=== PATIENT | male | born 1955 | race Caucasian/White ===

== ENCOUNTER 2016-08-18 14:45 | Inpatient (IN) ==
[2016-08-18] MEDS ORDERED: VANCOMYCIN 1,000 MG in 0.9 % SODIUM CHLORIDE 250 ML IV ONE (15:09)
[2016-08-18] MEDS ORDERED: HYDROmorphone 2 MG/ML SYRINGE IV PRN ×2 (15:15→18:39)
[2016-08-18] MEDS ORDERED: PIPERACILLIN SODIUM/TAZOBACTAM 3.375 GM in DEXTROSE 5% IN WATER 50 ML IV SCH ×2 (15:15→21:00)
[2016-08-18] MEDS ORDERED: 0.9 % SODIUM CHLORIDE 1,000 ML IV SCH (15:15)
--- NOTE | 2016-08-18 15:15 | Emergency Department Note ---
Wound/Laceration HPI - General Chief Complaint: Wound/Laceration Stated Complaint: wound debreidment Time Seen by Provider: 08/18/16 15:09 Source: patient Mode of arrival: wheelchair Limitations: no limitations - History of Present Illness HPI Narrative: This patient has a very badly infected wound on his left foot that previously had a toe amputation. He was seen in wound care brought over from the clinic to be admitted on IV antibiotics. Patient otherwise feels pretty well. - Related Data Home Medications Medication Instructions Recorded Confirmed Acetaminophen [Acetaminophen Extra 500 mg PO Q6H PRN 07/20/16 08/18/16 Strength] Clopidogrel [Plavix] 75 mg PO QDAY 07/20/16 08/18/16 Lisinopril [Zestril] 10 mg PO QDAY 07/20/16 08/18/16 Naproxen (Pp) [Aleve (Pp)] 220 mg PO PRN PRN 07/20/16 08/18/16 Pravastatin [Pravachol] 20 mg PO HS 07/20/16 08/18/16 buPROPion [Wellbutrin Sr] 150 mg PO QDAY 07/20/16 08/18/16 glipiZIDE [Glucotrol] 5 mg PO QDAY 07/20/16 08/18/16 metFORMIN HCL [Fortamet] 1,000 mg PO BID 07/20/16 08/18/16 HYDROcodone/ACETAMINOPHEN 1 each PO TID PRN 08/18/16 08/18/16 [Hydrocodon-Acetaminophen 5-325] Allergies Allergy/AdvReac Type Severity Reaction Status Date / Time No Known Drug Allergies Allergy Verified 08/18/16 14:52 Review of Systems All systems ED: reviewed and negative except as stated. Past Medical History - Past Medical History Medical history: Reports: CVA, diabetes, hypertension, thyroid disease Surgical history ED: Reports: tonsillectomy, other (toe amputation) Physical Exam Pictures of the patient's wound is dressed now and will not be undressed - General Limitations: no limitations General appearance: alert - Head Head exam: atraumatic - Eye Eye exam: Present: normal appearance - ENT ENT exam: normal exam - Neck Neck exam: Present: normal inspection - Chest Chest inspection: Present: normal inspection - Respiratory Respiratory exam: Present: normal lung sounds bilaterally - Cardiovascular Cardiovascular exam: Present: regular rate, normal rhythm, normal heart sounds - Abdominal Exam Abdominal exam: Present: soft. Absent: distention, tenderness - Neurological Exam Neurological exam: Present: alert - Psychiatric Psychiatric exam: Present: normal affect - Skin Skin exam: Present: warm, dry Course Vital Signs Temperature 97.2 F L 08/18/16 14:48 Pulse Rate 72 08/18/16 14:48 Respiratory Rate 16 08/18/16 14:48 Blood Pressure 145/79 08/18/16 14:48 Pulse Oximetry (%) 100 08/18/16 14:48 Temperature 97.2 F L 08/18/16 14:48 Pulse Rate 74 08/18/16 17:30 Respiratory Rate 16 08/18/16 14:48 Blood Pressure 144/94 08/18/16 17:30 Pulse Oximetry (%) 100 08/18/16 17:30 Wound/Laceration - Lab Data Lab results reviewed: Yes I reviewed the patient's lab results. Result diagrams: 08/18/16 15:15 08/18/16 15:15 Lab Results 08/18/16 08/18/16 Range/Units 15:15 15:15 WBC 11.9 H (4.5-11.0) K/mcL RBC 3.03 L (4.50-5.90) M/mcL Hgb 9.3 L (13.5-16.5) g/dL Hct 28.4 L (41.0-55.0) % MCV 93.8 (80.0-100.0) fL MCH 30.7 (26.0-34.0) pg MCHC 32.7 (31.0-36.0) g/dL RDW 14.8 H (11.5-14.5) % Plt Count 647 H (140-440) K/mcL MPV 5.8 L (7.4-10.4) fL Gran % 74.0 (38.0-78.0) % Lymph % (Auto) 16.5 (15.5-49.0) % [place] % (Auto) 5.5 (1.0-9.0) % Eos % (Auto) 3.4 (0.0-7.0) % Baso % (Auto) 0.6 (0.0-2.0) % Gran # 8.8 H (1.8-8.0) K/mcL Lymph # 2.0 (1.5-4.8) K/mcL [place] # 0.7 (0.1-0.9) K/mcL Eos # 0.4 (0.0-0.7) K/mcL Baso # 0.1 (0.0-0.3) K/mcL Sodium 133 (133-145) mmol/L Potassium 5.4 H (3.3-5.1) mmol/L Chloride 96 (96-108) mmol/L Carbon Dioxide 23 (22-30) mmol/L Anion Gap 14.0 (8-16) BUN 16 (8-23) mg/dl Creatinine 0.9 (0.7-1.2) mg/dl GFR Calculation 91 Glucose 67 L (70-105) mg/dL Hemoglobin A1c 6.6 H (4.0-6.0) % HGB Estim Average Glucose 143 mg/dL Calcium 9.4 (8.6-10.4) mg/dl Total Bilirubin 0.4 (0.0-1.0) mg/dL AST 12 (0-37) U/l ALT 7 (0-40) U/l Alkaline Phosphatase 90 (39-117) U/L C-React Prot High Sens 94.4 H (1.0-3.0) mg/L Total Protein 8.0 (5.9-8.4) gm/dL Albumin 4.0 (3.2-5.2) gm/dL Globulin 4.0 H (2.2-3.7) gm/dL Albumin/Globulin Ratio 1.0 (1.0-2.3) TSH 12.85 H (0.27-5.01) uIU/ml Disposition Clinical Impression: Cellulitis and abscess of foot, Infected ulcer of skin Disposition: [facility]fer As Inpt ([facility]) Condition: Good Referrals: Julee Morocho DO [Primary Care Provider] - Time of Disposition: 18:01
[2016-08-18 16:26] LABS: Basophils # (Auto) 0.1 K/mcL (0.0-0.3); Basophils % (Auto) 0.6 % (0.0-2.0); Eosinophils # (Auto) 0.4 K/mcL (0.0-0.7); Eosinophils % (Auto) 3.4 % (0.0-7.0); Lymphocytes % (Auto) 16.5 % (15.5-49.0); Mean Cell Volume 93.8 fL (80.0-100.0); Mean Corpuscular HGB Conc 32.7 g/dL (31.0-36.0); Mean Corpuscular Hemoglobin 30.7 pg (26.0-34.0); Monocytes # (Auto) 0.7 K/mcL (0.1-0.9); Monocytes % (Auto) 5.5 % (1.0-9.0); Platelet Count 647 K/mcL (140-440); RBC 3.03 M/mcL (4.50-5.90); Red Cell Distribution Width 14.8 % (11.5-14.5)
[2016-08-18 16:49] LABS: ALT/SGPT 7 U/l (0-40); Alkaline Phosphatase 90 U/L (39-117); Blood Urea Nitrogen 16 mg/dl (8-23)
[2016-08-18 16:58] LABS: CRP,High Sensitivity 94.4 mg/L (1.0-3.0)
[2016-08-18 17:00] LABS: Estimated Average Glucose(eAG) 143 mg/dL; Hemoglobin A1C 6.6 % HGB (4.0-6.0)
--- NOTE | 2016-08-18 17:31 | Internal Med History&Physical ---
Medical - H&P: HPI Patient information: Note initiated : 08/18/16 at 5:27 pm Service Date, if different from initiated Date: [] Patient: Jacoby Silver a 61 y/o M admitted on for wound [facility]. Chief Complaint: [] History of present illness: Mr. Silver is a 61 year old male who was sent to the ER from the wound care clinic for evaluation and treatment of the left leg wound. patient has h/o DM, PVD, and necrosis/ of the left little toe, It appears that the patient had a angiography, angioplasty done by Dr Amezcua, and as per the patient a cholesterol plaque was lodged in the artery of the lower leg, leading to necrosis. This necrotic tissue along with the 5th left toe was amputated by Dr William in june. Since then the patient is being treated by wound care. The patients wound did not heal and got worse, he was being treated by Po clindamycin, last dose was this AM, which did not help. He was seen in the Wound care clinic by Dr Cosby who noted he will need IV antibiotics and likely debridement under general anesthesia. The patient was therefore admitted to the hospital for wound debridement, IV antibiotics. The patient otherwise has no acute concerns, reports some pain in the left leg which responds to pain medications. In the ER his workup revealed wbc count of 11.9, anemia with hb of 9.3, and mildly elevated K level at 5.4. He has been not eaten much since this AM, and his glucose was 67. - Constitutional Constitutional: Absent: chills, fever(s), weakness - EENT Eyes: Absent: blind spots, blurry vision Nose, mouth and throat: Absent: abnormal hearing, disequilibrium, dizziness - Cardiovascular Cardiovascular: Absent: chest pain, chest pain at rest, orthopnea, palpatations , paroxysmal nocturnal dyspnea, pedal edema - Respiratory Respiratory: Absent: cough, dyspnea, pain on inspirtation, chest congestion, excessive phlegm production - Gastrointestinal Gastrointestinal: Absent: abdominal pain, heartburn, melena, nausea, vomiting - Genitourinary Genitourinary: Absent: hematuria, urinary frequency, urinary hesitancy - Musculoskeletal Additional comments: left leg pain due to ulcer/ wound. - Integumentary Integumentary: Present: wounds. Absent: jaundice - Neurological Neurological: Absent: disequilibrium, focal weakness, headache(s), syncope - Psychiatric Psychiatric: Absent: behavioral changes, confusion - Endocrine Endocrine: Absent: polydipsia, polyphagia, polyuria - Hematologic/Lymphatic Hematologic/Lymphatic: Present: easy bleeding, easy bruising (on clopidogrel) - Allergic/Immunologic Allergic/Immunologic: Absent: uticaria, wheezing, lip swelling Medical - H&P: PMH Medical history: PMH of PVD< DM< Htn ,hld, no h/o cad, chf, cva. Surgical history: h/o left fifth toe amputation in june. 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 Medical - H&P: Meds Home Medications Medication Instructions Recorded Confirmed Type Acetaminophen [Acetaminophen Extra 500 mg PO Q6H PRN 07/20/16 08/18/16 History Strength] Clopidogrel [Plavix] 75 mg PO QDAY 07/20/16 08/18/16 History Lisinopril [Zestril] 10 mg PO QDAY 07/20/16 08/18/16 History Naproxen (Pp) [Aleve (Pp)] 220 mg PO PRN PRN 07/20/16 08/18/16 History Pravastatin [Pravachol] 20 mg PO HS 07/20/16 08/18/16 History buPROPion [Wellbutrin Sr] 150 mg PO QDAY 07/20/16 08/18/16 History glipiZIDE [Glucotrol] 5 mg PO QDAY 07/20/16 08/18/16 History metFORMIN HCL [Fortamet] 1,000 mg PO BID 07/20/16 08/18/16 History HYDROcodone/ACETAMINOPHEN 1 each PO TID PRN 08/18/16 08/18/16 History [Hydrocodon-Acetaminophen 5-325] Allergies Allergy/AdvReac Type Severity Reaction Status Date / Time No Known Drug Allergies Allergy Verified 08/18/16 14:52 Medical - H&P: Exam - Constitutional Vitals: Temp Pulse Resp BP Pulse Ox 97.2 F L 73 16 128/71 100 08/18/16 14:48 08/18/16 16:00 08/18/16 14:48 08/18/16 16:00 08/18/16 16:00 General appearance: cooperative, no acute distress - Head Head exam: Present: atraumatic, normal inspection, normocephalic - Eye Eye exam: Present: PERRL. Absent: periorbital swelling, periorbital tenderness , scleral icterus - ENT ENT exam: Present: mucous membranes moist - Neck Neck exam: Present: normal inspection - Respiratory Respiratory exam: Present: normal respiratory exam. Absent: accessory muscle use, rhonchi, wheezes - Cardiovascular Cardiovascular exam: Present: normal rate and rhythm, systolic murmur (aortic region.). Absent: +S1, +S2 - GI/Abdominal GI/Abdominal exam: Present: normal bowel sounds, soft. Absent: rigid, tenderness - Extremities Exam Additional comments: left lower extremity ulcer 7x4 cms, irregular border on the lateral aspect of the foot base is made of tendons, bones, and muscles, with significant sloughing, surrounding skin shows sign of necrosis on the distal end and ertyema on rosario proxmial end. - Back Exam Back exam: Present: normal inspection - Neurological Exam Neurological exam: Present: alert, CN II-XII intact, oriented X3. Absent: motor sensory deficit - Psychiatric Psychiatric exam: Absent: agitated, anxious Medical - H&P: Reslt - Labs CBC & Chem 7: 08/18/16 15:15 08/18/16 15:15 Labs: Short CBC 08/18/16 Range/Units 15:15 WBC 11.9 H (4.5-11.0) K/mcL Hgb 9.3 L (13.5-16.5) g/dL Hct 28.4 L (41.0-55.0) % Plt Count 647 H (140-440) K/mcL BMP 08/18/16 15:15 Sodium 133 Potassium 5.4 H Chloride 96 Carbon Dioxide 23 BUN 16 Creatinine 0.9 Glucose 67 L Calcium 9.4 Liver Function 08/18/16 Range/Units 15:15 Total Bilirubin 0.4 (0.0-1.0) mg/dL AST 12 (0-37) U/l ALT 7 (0-40) U/l Alkaline Phosphatase 90 (39-117) U/L Albumin 4.0 (3.2-5.2) gm/dL Medical - H&P: A/P (1) Cellulitis and abscess of foot Current visit: Yes Status: Acute (2) Infected ulcer of skin Current visit: Yes Status: Acute (3) Diabetes mellitus Current visit: Yes Status: Acute (4) Hypertension associated with diabetes Current visit: Yes Status: Acute (5) Hyperlipidemia associated with type 2 diabetes mellitus Current visit: Yes Status: Acute (6) Peripheral vascular disease Current visit: Yes Status: Acute (7) Pre-op evaluation Current visit: Yes Status: Acute (8) Hyperkalemia Current visit: Yes Status: Acute (9) Anemia Current visit: Yes Status: Acute - Narrative A/P Narrative: The patient presents to the hospital with a infected ulcer, which has had recent resection and failed outpatient therapy Plan is to have the patient ulcer debrided under GA, IV antibiotics and likely hyperbaric oxygen therapy. Patient does not endorse any pain, no sob on activity, MET is 4 , able to do household work, laundry, till April could mow the lawn without any chest pain or shortness of breath, no cad, cva, chf, ckd. The patient would be moderate risk for the surgical procedure, his RCRI score is 0, but his poor recent functional status, h/o DM, PVD would increase his periop cardiovascular risk. will continue his statin and bp medications. I will get an EKG and Chest x ray For the cellulitis, IV antibiotics with vancomycin and zosyn, hopefully surgeon will send cultures during surgery, he will need a PICC line for half-way antibiotics, he will also need an ID eval as outpatient. Anemia seems like post op since his last surgery, or anemia of chr disease, Will get type and scren done and transfuse if needed. MIldly elevated K , IV fluids for now, and reassess in AM. DVT prophylaxis, one time dose of lovenox today, Diet diabetic diet today, will see if he can have breakfast as surgery is planned later in the day. Will hold all his home medications besides bp meds and cholesterol meds for now. Hold plavix pt denies any stent placement.
[2016-08-18] MEDS ORDERED: ACETAMINOPHEN 325 MG TABLET PO PRN (18:39)
[2016-08-18] MEDS ORDERED: 0.9 % SODIUM CHLORIDE 250 ML IV SCH (18:39)
[2016-08-18] MEDS ORDERED: BISACODYL 10 MG SUPP.RECT PR PRN (18:39)
[2016-08-18] MEDS ORDERED: ENOXAPARIN 40 MG/0.4 ML SYRINGE SQ SCH (18:39)
[2016-08-18] MEDS ORDERED: ONDANSETRON 4 MG/2 ML VIAL IV PRN (18:39)
[2016-08-18] MEDS ORDERED: MAGNESIUM HYDROXIDE 30 ML ORAL.SUSP PO PRN (18:39)
[2016-08-18] MEDS ORDERED: NALOXONE HCL 0.4 MG/ML VIAL IV PRN (18:39)
[2016-08-18] MEDS ORDERED: FLEETS ADULT ENEMA PR PRN (18:39)
[2016-08-18] MEDS ORDERED: PROMETHAZINE 25 MG/ML VIAL IV PRN (18:39)
[2016-08-18] MEDS: DEXTROSE 5%-1/2NS 1,000 ML IV SCH (18:58)
[2016-08-18] MEDS ORDERED: oxyCODONE HCL 5 MG TABLET PO ONE (19:02)
[2016-08-18] MEDS ORDERED: HYDROmorphone 2 MG/ML SYRINGE ONE (19:02)
[2016-08-18] MEDS ORDERED: VANCOMYCIN PER PHARMACY IV ONE (19:47)
[2016-08-18] MEDS ORDERED: SENNOSIDES 1 TABLET PO PRN (21:00)
[2016-08-18] MEDS ORDERED: SIMVASTATIN 10 MG TABLET PO SCH (21:00)
[2016-08-18] MEDS: FAMOTIDINE/PF 20 MG/2 ML VIAL IV SCH (21:11)
[2016-08-18] MEDS ORDERED: DEXTROSE 50% 50 ML VIAL IV PRN (21:39)
[2016-08-18] MEDS: 0.9 % SODIUM CHLORIDE 10 ML SYRINGE IV SCH (21:49)
[2016-08-18] MEDS ORDERED: INSULIN LISPRO 1 UNIT/0.01 ML UNIT SQ ONE (22:10)
[2016-08-18] MEDS: PIPERACILLIN SODIUM/TAZOBACTAM 3.375 GM in DEXTROSE 5% IN WATER 50 ML IV SCH (22:10)
[2016-08-18] MEDS ORDERED: PIPERACILLIN SODIUM/TAZOBACTAM 3.375 GM VIAL IV ONE (22:11)
[2016-08-18] MEDS: oxyCODONE HCL 5 MG TABLET PO PRN (23:52)
[2016-08-19] MEDS ORDERED: PIPERACILLIN SODIUM/TAZOBACTAM 3.375 GM VIAL IV ONE ×2 (01:31→05:41)
[2016-08-19] MEDS: PIPERACILLIN SODIUM/TAZOBACTAM 3.375 GM in DEXTROSE 5% IN WATER 50 ML IV SCH ×3 (01:55→17:53)
[2016-08-19] MEDS ORDERED: VANCOMYCIN 500 MG VIAL ONE (03:50)
[2016-08-19] MEDS ORDERED: VANCOMYCIN 1,000 MG in 0.9 % SODIUM CHLORIDE 250 ML IV SCH ×2 (04:00→16:00)
[2016-08-19] MEDS: oxyCODONE HCL 5 MG TABLET PO PRN ×2 (04:17→21:25)
[2016-08-19 05:40] LABS: Basophils # (Auto) 0.1 K/mcL (0.0-0.3); Basophils % (Auto) 0.7 % (0.0-2.0); Eosinophils # (Auto) 0.3 K/mcL (0.0-0.7); Eosinophils % (Auto) 3.6 % (0.0-7.0); Granulocytes % (Auto) 63.2 % (38.0-78.0); Lymphocytes # (Auto) 2.7 K/mcL (1.5-4.8); Lymphocytes % (Auto) 27.6 % (15.5-49.0); Mean Cell Volume 93.8 fL (80.0-100.0); Mean Corpuscular HGB Conc 32.8 g/dL (31.0-36.0); Mean Corpuscular Hemoglobin 30.8 pg (26.0-34.0); Monocytes # (Auto) 0.5 K/mcL (0.1-0.9); Monocytes % (Auto) 4.9 % (1.0-9.0); Platelet Count 558 K/mcL (140-440); RBC 2.73 M/mcL (4.50-5.90); Red Cell Distribution Width 14.9 % (11.5-14.5)
[2016-08-19] MEDS ORDERED: 0.9 % SODIUM CHLORIDE 250 ML IV SCH ×3 (05:45→16:39)
[2016-08-19 05:55] LABS: Appearance,Urine CLEAR; Bilirubin,Urine NEG (NEG); Color,Urine STRAW; Glucose,Urine (UA) NEGATIVE (NEG); Leukocyte Esterase,Urine NEG /uL (NEG); Nitrate,Urine NEG (NEG); Protein,Urine NEG (NEG); Specific Gravity,Urine 1.009 (1.000-1.035); Urine Blood NEG mg/dL (<0.03); Urobilinogen,Urine NEG (NEG)
[2016-08-19 06:15] LABS: ALT/SGPT 6 U/l (0-40); Albumin 3.3 gm/dL (3.2-5.2); Albumin/Globulin Ratio 0.9 (1.0-2.3); Alkaline Phosphatase 77 U/L (39-117); Bilirubin,Direct < 0.2 mg/dL (0.0-0.3); Blood Urea Nitrogen 12 mg/dl (8-23); Gamma Glutamyl Transpeptidase 66 U/L (8-61); Magnesium 2.2 mg/dL (1.6-2.5); Phosphorous 3.4 mg/dL (2.7-4.5); Uric Acid 3.9 mg/dL (2.5-8.0)
[2016-08-19] MEDS: 0.9 % SODIUM CHLORIDE 10 ML SYRINGE IV SCH (06:15)
[2016-08-19] MEDS ORDERED: INSULIN LISPRO 1 UNIT/0.01 ML UNIT SQ SCH ×2 (07:30→11:30)
--- NOTE | 2016-08-19 07:45 | General Surgery Consult Note ---
History of Present Illness Patient information: Note initiated : 08/19/16 at 7:41 am Service Date, if different from initiated Date: [] Patient: Jacoby Silver 61 y/o M admitted on 08/18/16 for wound debreidment. Chief Complaint: [] Consult date: 08/19/16 Reason for consult: other (Wound Care Consult for Necrotizing Infection of LEFT foot) Requesting physician: Agapito Pitt History of present illness: Patient admitted from ER, after seen in Wound Care Clinic earlier last night . Gangrene and Necrotizing Infection Left foot after undergoing Left 5 th toe emergency amputation s/p Revascularization for PAD with distal atheromatous embolism Medications and Allergies Home Medications Medication Instructions Recorded Confirmed Type Acetaminophen [Acetaminophen Extra 500 mg PO Q6H PRN 07/20/16 08/18/16 History Strength] Clopidogrel [Plavix] 75 mg PO QDAY 07/20/16 08/19/16 History Lisinopril [Zestril] 10 mg PO QDAY 07/20/16 08/19/16 History Naproxen (Pp) [Aleve (Pp)] 220 mg PO PRN PRN 07/20/16 08/18/16 History Pravastatin [Pravachol] 20 mg PO HS 07/20/16 08/19/16 History buPROPion [Wellbutrin Sr] 150 mg PO QDAY 07/20/16 08/19/16 History glipiZIDE [Glucotrol] 5 mg PO QDAY 07/20/16 08/19/16 History metFORMIN HCL [Fortamet] 1,000 mg PO BID 07/20/16 08/19/16 History HYDROcodone/ACETAMINOPHEN 1 each PO TID PRN 08/18/16 08/19/16 History [Hydrocodon-Acetaminophen 5-325] Allergies Allergy/AdvReac Type Severity Reaction Status Date / Time No Known Drug Allergies Allergy Verified 08/18/16 14:52 Exam Temp Pulse Resp BP Pulse Ox 98.3 F 64 16 154/79 99 08/19/16 06:56 08/19/16 06:56 08/19/16 06:56 08/19/16 06:56 08/19/16 06:56 - General physical appearance well developed, well nourished, no distress, moderate pain - Eyes PERRL, normal ocular movement - ENT normal pinna, normal nares, normal mucosa, no hearing loss, no congestion - Neck no masses, no bruits, trachea midline, no lymphadectomy, no venous distension - Cardiovascular Cardiovascular exam IM: Present: normal rate and rhythm - Respiratory normal expansion, normal respiratory effort, clear to percussion, clear to auscultation - Abdomen Abdomen: Present: soft, non tender, bowel sounds - Integumentary Present: other (NECROTIZING COMPLICATED SKIN INFECTION WITH GANGRENE AND FOUL DRAINAGE) - Neurologic Present: normal coordination - Musculoskeletal Present: other (NWB Left foot status post LEFT 5 th toe amputation over 3 weeks ago) - Psychiatric Present: oriented to time, oriented to person, oriented to place, speech is normal, memory intact Results - Labs 08/19/16 04:10 08/19/16 04:10 Abnormal lab results 08/19/16 08/19/16 08/19/16 Range/Units 04:10 04:10 04:10 RBC 2.73 L (4.50-5.90) M/mcL Hgb 8.4 L (13.5-16.5) g/dL Hct 25.7 L (41.0-55.0) % RDW 14.9 H (11.5-14.5) % Plt Count 558 H (140-440) K/mcL MPV 5.8 L (7.4-10.4) fL PT 14.6 H (11.9-14.5) sec Glucose 131 H (70-105) mg/dL GGT 66 H (8-61) U/L Albumin/Globulin Ratio 0.9 L (1.0-2.3) Diabetes panel 08/18/16 08/19/16 Range/Units 18:39 04:10 Sodium 134 (133-145) mmol/L Potassium 4.4 (3.3-5.1) mmol/L Chloride 98 (96-108) mmol/L Carbon Dioxide 23 (22-30) mmol/L BUN 12 (8-23) mg/dl Creatinine 0.8 (0.7-1.2) mg/dl Glucose 131 H (70-105) mg/dL Hemoglobin A1c TNP Calcium 8.7 (8.6-10.4) mg/dl AST 7 (0-37) U/l ALT 6 (0-40) U/l Alkaline Phosphatase 77 (39-117) U/L Total Protein 7.0 (5.9-8.4) gm/dL Albumin 3.3 (3.2-5.2) gm/dL Triglycerides 117 (<150) mg/dl Calcium panel 08/19/16 Range/Units 04:10 Calcium 8.7 (8.6-10.4) mg/dl Phosphorus 3.4 (2.7-4.5) mg/dL Albumin 3.3 (3.2-5.2) gm/dL Pituitary panel 08/19/16 Range/Units 04:10 Sodium 134 (133-145) mmol/L Potassium 4.4 (3.3-5.1) mmol/L Chloride 98 (96-108) mmol/L Carbon Dioxide 23 (22-30) mmol/L BUN 12 (8-23) mg/dl Creatinine 0.8 (0.7-1.2) mg/dl Glucose 131 H (70-105) mg/dL Calcium 8.7 (8.6-10.4) mg/dl Adrenal panel 08/19/16 Range/Units 04:10 Sodium 134 (133-145) mmol/L Potassium 4.4 (3.3-5.1) mmol/L Chloride 98 (96-108) mmol/L Carbon Dioxide 23 (22-30) mmol/L BUN 12 (8-23) mg/dl Creatinine 0.8 (0.7-1.2) mg/dl Glucose 131 H (70-105) mg/dL Calcium 8.7 (8.6-10.4) mg/dl Total Bilirubin 0.4 (0.0-1.0) mg/dL AST 7 (0-37) U/l ALT 6 (0-40) U/l Alkaline Phosphatase 77 (39-117) U/L Total Protein 7.0 (5.9-8.4) gm/dL Albumin 3.3 (3.2-5.2) gm/dL All other labs normal. Assessment and Plan (1) Gangrene associated with diabetes mellitus Patient is admitted to hospitalist physician service. Started of local wound care, IV antibiotics and correction of anemia and metabolic issues. I spoke at length with patient, his and step son at length. Different case scenarios discussed. He is strongly advised to make therapeutic life style changes, quit smoking and comply with physical therapy and nursing staff instructions during hospitalization and after discharge. No assurances given. Need for further surgery, on going wound care and adjuvant therapies HBOT etc cannot be determined at this time. Possibility of a LEFT leg amputation cannot be ruled out. He understands and agrees with plan of care. Will be taking patient to OR later today for debridement and pulse lavage irrigation. For PICC line today. CM / SW to see patient and arrange for change to swing bed status to continue treatment of patient until he is stabilized. Status: Acute (2) Amputation of little toe Status: Acute (3) Amputation of toe, traumatic, complicated Status: Acute
--- NOTE | 2016-08-19 08:25 | XRay Report ---
CLINICAL INFORMATION: Preop COMPARISON: None. FINDINGS: The heart is mildly enlarged. Mediastinum and pulmonary vessels are normal. The lungs are clear. No effusions. Bones and soft tissues normal IMPRESSION: Mild cardiomegaly. No acute disease Interpreted and Authenticated by: Itz Alberto 08/19/16
[2016-08-19] MEDS: FAMOTIDINE/PF 20 MG/2 ML VIAL IV SCH ×2 (08:27→20:01)
--- NOTE | 2016-08-19 08:56 | Internal Med Progress Note ---
Medical - PN: Subj Patient information: Note initiated : 08/19/16 at 8:53 am Service Date, if different from initiated Date: [] Patient: Jacoby Silver 61 y/o M admitted on 08/18/16 for wound debreidment. Chief Complaint: [] Interval history: The patient seen examined No acute overnight events labs, vitals reviwed The patient slept ok, his pain is well controlled with the present regime, The patient is scheduled for surgery today His hb is low, he will be transfused post op. will review plan of care with surgery. Pertinent ROS: Denies headache, dizziness Denies chest pain, palpitations Denies cough or shortness of breath Denies abdominal pain, nausea or vomiting. - Constitutional Vitals: Vital Signs Temp Pulse Resp BP Pulse Ox 98.3 F 64 16 154/79 99 08/19/16 06:56 08/19/16 06:56 08/19/16 06:56 08/19/16 06:56 08/19/16 06:56 Period Temp Pulse Resp BP Sys/Clements Pulse Ox Last 24 Hr 97.4 F-98.3 F 64-80 16-20 125-154/58-79 97-99 Intake and Output 08/18/16 08/19/16 08/19/16 21:59 05:59 13:59 Intake Total 300 / 300 940 / 940 Output Total 375 / 375 2250 / 2250 825 / 825 Balance -75 / -75 -1310 / -1310 -825 / -825 Weight 182 lb 8 oz Intake & Output: Intake & Output 08/18/16 08/19/16 08/19/16 21:59 05:59 13:59 Intake Total 300 / 300 940 / 940 Output Total 375 / 375 2250 / 2250 825 / 825 Balance -75 / -75 -1310 / -1310 -825 / -825 Weight 182 lb 8 oz Intake: IV 300 / 300 100 / 100 Dextrose 5% in Water 50 50 / 50 100 / 100 ml @ 100 mls/hr IV Q6 REGI with Zosyn 3.375 gm Rx#: [id number] Sodium Chloride 0.9% 250 250 / 250 ml @ 250 mls/hr IV ONCE ONE with Vancomycin 1,000 mg Rx#:[id number] Oral 840 / 840 Output: Void Amount 375 / 375 2250 / 2250 825 / 825 Other: Feeding Ability Independent # Voids 2 1 Exam: Constitutional; Afebrile, cooperative, alert, not in distress. Eyes- No icterus, Pupils equal, reactive, No periorbital swelling Ears- Ext ear normal, hearing normal to conversation. Neck- Midline trachea, supple Respiratory system: Air Entry equal on both sides, No crackles or wheezing, no rhonchi. CVS- Rate rhythm regular, S1,S2 heard, no gallop, no rub. Abdomen- Soft nontender abdomen, no organomegaly, no tenderness, no guarding or rigidity, [employer]- AOOx3, moving all extremities, no focal deficit noted. Medical - PN: Obj Da - Labs CBC & Chem 7: 08/19/16 04:10 08/19/16 04:10 Labs: Abnormal Lab Results 08/19/16 08/19/16 08/19/16 04:10 04:10 04:10 RBC 2.73 L Hgb 8.4 L Hct 25.7 L RDW 14.9 H Plt Count 558 H MPV 5.8 L PT 14.6 H Glucose 131 H GGT 66 H Albumin/Globulin Ratio 0.9 L Meds: Medications Acetaminophen (Tylenol) 650 mg PO Q6HP PRN PRN Reason: PAIN/FEVER > 101 Bisacodyl (Dulcolax) 10 mg OK Q2-3DAYS PRN PRN Reason: Constipation Bupropion HCl (Wellbutrin Sr) 150 mg PO QDAY [facility] Last Admin: 08/19/16 08:35 Dose: Not Given Dextrose (Dextrose 50%) 0 ml IV UD PRN PRN Reason: Hypoglycemia Diagnostic Test (Pha) (Accu-Chek) 1 each FS ACHS [facility] Last Admin: 08/19/16 08:05 Dose: 1 each Famotidine (Pepcid) 20 mg IV Q12 [facility] Last Admin: 08/19/16 08:27 Dose: 20 mg Hydromorphone HCl (Dilaudid) 0.5 mg IV Q2HP PRN PRN Reason: Pain Dextrose/Sodium Chloride (Dextrose 5%-1/2ns Iv Solution) 1,000 mls @ 84 mls/hr IV .[id number] [facility] Last Admin: 08/18/16 18:58 Dose: 84 mls/hr Piperacillin Sod/Tazobactam (Sod 3.375 gm/ Dextrose) 50 mls @ 100 mls/hr IV Q6 [facility] Last Admin: 08/19/16 06:15 Dose: Not Given Vancomycin HCl 1,000 mg/ (Sodium Chloride) 250 mls @ 250 mls/hr IV Q12H [facility] Last Admin: 08/19/16 04:05 Dose: Not Given Sodium Chloride (Sodium Chloride 0.9%) 250 mls @ 20 mls/hr IV .[id number] [facility] Stop: 08/19/16 18:14 Last Admin: 08/19/16 06:14 Dose: Not Given Insulin Human Lispro (Humalog) 0 unit SQ ACHS [facility] PRN Reason: Protocol Last Admin: 08/19/16 08:32 Dose: Not Given Lisinopril (Zestril) 10 mg PO QDAY [facility] Last Admin: 08/19/16 08:27 Dose: 10 mg Magnesium Hydroxide (Milk Of Magnesia) 30 ml PO DAILYP PRN PRN Reason: Constipation Naloxone HCl (Narcan) 0.1 mg IV Q2MIN PRN PRN Reason: Opiate Reversal Ondansetron HCl (Zofran) 4 mg IV Q6HP PRN PRN Reason: Nausea And Vomiting Oxycodone HCl (Roxicodone) 5 mg PO Q4HP PRN PRN Reason: Pain Last Admin: 08/19/16 04:17 Dose: 5 mg Promethazine HCl (Phenergan) 12.5 mg IV Q6HP PRN PRN Reason: Nausea And Vomiting Senna (Senokot) 2 tab PO HSP PRN PRN Reason: Constipation Simvastatin (Zocor) 10 mg PO HS [facility] Last Admin: 08/18/16 21:10 Dose: 10 mg Sodium Biphosphate/Sodium Phosphate (Fleets Adult) 1 dose OK Q3-4DAYS PRN PRN Reason: Constipation Sodium Chloride (Saline Flush) 10 ml IV Q8 [facility] Last Admin: 08/19/16 06:15 Dose: Not Given Medical - PN: A/P - Time Spent With Patient Total time spent is greater than 50% in coordination of care (as documented) at patient's floor/unit and/or counseling patient: (1) Cellulitis and abscess of foot Status: Acute Current Visit: Yes (2) Infected ulcer of skin Status: Acute Current Visit: Yes (3) Diabetes mellitus Status: Acute Current Visit: Yes (4) Hypertension associated with diabetes Status: Acute Current Visit: Yes (5) Hyperlipidemia associated with type 2 diabetes mellitus Status: Acute Current Visit: Yes (6) Peripheral vascular disease Status: Acute Current Visit: Yes (7) Pre-op evaluation Status: Acute Current Visit: Yes (8) Hyperkalemia Status: Acute Current Visit: Yes (9) Anemia Status: Acute Current Visit: Yes - Narrative A/P Narrative: Patient admitted with cellutlitis, elevated wbc Plan to continue IV antibiotics, vancomycin and zosyn Will place PICC line once plan for antibiotics is known, likely will need 4-6 weeks of IV abx Patient Potassium is normal now, Patients EKG pending. IV fluids for now, d5/ 1/2 given due to patient being low on glucose yesterday. Transfuse if hb < 8.0 which I expect this afternoon after surgery, Disposition as per Wound care consult Medical - PN: Qual - VTE Deep Vein Thrombosis/Pulmonary Embolism Present on Admission: No
[2016-08-19] MEDS ORDERED: LISINOPRIL 10 MG TABLET PO SCH (09:00)
[2016-08-19] MEDS ORDERED: buPROPion 150 MG TAB.SR.12H PO SCH (09:00)
--- NOTE | 2016-08-19 09:24 | XRay Report ---
CLINICAL INFORMATION: Wound with fifth ray amputation evaluate for osteomyelitis. COMPARISON: None. FINDINGS: Amputation changes in the fifth ray at the proximal fifth metatarsal base are appreciated. The amputation site is normal: there is no specific radiographic evidence of osteomyelitis. Mild forefoot soft tissue swelling may represent cellulitis. Mild degenerative changes noted in the first MTP and DIP. The other joint spaces are unremarkable. IMPRESSION: Fifth ray amputation at the metatarsal base level. Expected postoperative appearance. No specific radiographic evidence of osteomyelitis. Diffuse forefoot soft tissue swelling suggests cellulitis Interpreted and Authenticated by: Itz Alberto 08/19/16
--- NOTE | 2016-08-19 10:07 | General Surgery Progress Note ---
Subjective Narrative: Note initiated : 08/19/16 at 10:03 am Service Date, if different from initiated Date: [] Patient: Jacoby Silver 61 y/o M admitted on 08/19/16 for wound debridement. Chief Complaint: [] Patient seen and lab results reviewed. Spoke with Dr. Pitt, Hospitalist. Markedly elevated C Reactive Protein. TSH and Anemia. For medical management. Patient has deformed and dystrophic and fungal encrusted toe nails, especially both great toes. Will trim or excise toe nails at time of surgery as appropriate. Patient agrees. Objective Temp Pulse Resp BP Pulse Ox 98.3 F 64 16 154/79 99 08/19/16 06:56 08/19/16 06:56 08/19/16 06:56 08/19/16 06:56 08/19/16 06:56 - Additional Data Intake & Output - Last 24 hours: Intake & Output 08/17/16 08/18/16 08/19/16 08/20/16 05:59 05:59 05:59 05:59 Output Total 375 / 1200 Balance -375 / -1200 - Labs 08/19/16 04:10 08/19/16 04:10 Medical - PN: A/P - Time Spent With Patient Total time spent is greater than 50% in coordination of care (as documented) at patient's floor/unit and/or counseling patient: Onychogryposis , fungal toe nails. less than 15 minutes (1) Gangrene associated with diabetes mellitus Status: Acute Current Visit: Yes (2) Amputation of little toe Status: Acute Current Visit: Yes (3) Amputation of toe, traumatic, complicated Status: Acute Current Visit: Yes
[2016-08-19] MEDS ORDERED: MAGNESIUM HYDROXIDE 30 ML ORAL.SUSP PO PRN ×2 (10:30→16:39)
[2016-08-19] MEDS ORDERED: ONDANSETRON 4 MG/2 ML VIAL IV PRN ×2 (10:30→16:39)
[2016-08-19] MEDS ORDERED: DEXTROSE 50% 50 ML VIAL IV PRN ×2 (10:30→16:39)
[2016-08-19] MEDS ORDERED: PROMETHAZINE 25 MG/ML VIAL IV PRN ×3 (10:30→16:39)
[2016-08-19] MEDS ORDERED: ACETAMINOPHEN 325 MG TABLET PO PRN ×2 (10:30→16:39)
[2016-08-19] MEDS ORDERED: oxyCODONE HCL 5 MG TABLET PO PRN (10:30)
[2016-08-19] MEDS ORDERED: DEXTROSE 5%-1/2NS 1,000 ML IV SCH (10:30)
[2016-08-19] MEDS ORDERED: HYDROmorphone 2 MG/ML SYRINGE IV PRN (10:30)
[2016-08-19] MEDS ORDERED: BISACODYL 10 MG SUPP.RECT PR PRN ×2 (10:30→16:39)
[2016-08-19] MEDS ORDERED: NALOXONE HCL 0.4 MG/ML VIAL IV PRN ×2 (10:30→16:39)
[2016-08-19] MEDS ORDERED: FLEETS ADULT ENEMA PR PRN ×2 (10:30→16:39)
[2016-08-19] MEDS: DEXTROSE 5%-1/2NS 1,000 ML IV SCH ×2 (11:01→17:16)
[2016-08-19] MEDS ORDERED: PIPERACILLIN SODIUM/TAZOBACTAM 3.375 GM in DEXTROSE 5% IN WATER 50 ML IV SCH (12:00)
[2016-08-19] MEDS ORDERED: 0.9 % SODIUM CHLORIDE 10 ML SYRINGE IV SCH (14:00)
[2016-08-19] MEDS ORDERED: MIDAZOLAM 5 MG/5 ML VIAL IV ONE (15:25)
[2016-08-19] MEDS ORDERED: KETAMINE 100 MG/ML ML IV ONE (15:25)
[2016-08-19] MEDS ORDERED: fentaNYL 100 MCG/2 ML VIAL IV ONE (15:25)
[2016-08-19] MEDS ORDERED: GLYCOPYRROLATE 0.2 MG/ML VIAL IV ONE (15:25)
[2016-08-19] MEDS ORDERED: PROPOFOL 200 MG/20 ML VIAL IV ONE (15:25)
[2016-08-19] MEDS ORDERED: LIDOCAINE HCL/PF 100 MG/5 ML SYRINGE IV ONE (15:25)
[2016-08-19] MEDS ORDERED: DEXAMETHASONE 10 MG/ML VIAL IV ONE (15:25)
[2016-08-19] MEDS ORDERED: ONDANSETRON 4 MG/2 ML VIAL IV ONE (15:25)
[2016-08-19] MEDS ORDERED: GENTAMICIN SULFATE 800 MG/20 ML VIAL IR ONE (15:37)
[2016-08-19] MEDS ORDERED: BACITRACIN 50,000 UNIT VIAL IR ONE (15:37)
[2016-08-19] MEDS ORDERED: CLINDAMYCIN 600 MG/4 ML VIAL IR ONE (15:37)
[2016-08-19] MEDS ORDERED: METHOCARBAMOL 1,000 MG/10 ML VIAL IV PRN (16:30)
[2016-08-19] MEDS ORDERED: fentaNYL 100 MCG/2 ML VIAL IV PRN (16:30)
[2016-08-19] MEDS ORDERED: IPRATROPIUM/ALBUTEROL 3 ML AMPUL.NEB NEB PRN (16:30)
[2016-08-19] MEDS ORDERED: BENZOCAINE/MENTHOL 1 LOZENGE PO PRN (16:30)
[2016-08-19] MEDS ORDERED: MEPERIDINE 25 MG/ML SYRINGE IV PRN (16:30)
[2016-08-19] MEDS ORDERED: LACTATED RINGERS 1,000 ML IV SCH (16:30)
[2016-08-19] MEDS: HYDROmorphone 2 MG/ML SYRINGE IV PRN ×2 (16:35→20:02)
[2016-08-19] MEDS: INSULIN LISPRO 1 UNIT/0.01 ML UNIT SQ SCH ×2 (17:53→21:32)
[2016-08-19 18:07] LABS: Blood Urea Nitrogen 8 mg/dl (8-23)
[2016-08-19 18:17] LABS: Ionized Calcium 1.25 mmol/L (1.16-1.32)
--- NOTE | 2016-08-19 19:51 | General Surgery Procedure Note ---
Date of procedure: Note initiated : 08/19/16 at 7:48 pm Service Date, if different from initiated Date: [] Pre-op diagnosis: Infected /Necrotic open wound Left foot / dystrophic and mycotic fungal toe Post-op diagnosis: same Procedure: Trimming of Left fungal toe nails and excision debridement of LEFT foot wound, exposed bone and pulse lavage irrigation with open packing Findings: Multiple abscesses, slough at the site of prior surgery and grossly deformed and dystrophic fungal toe nails. Grafts/Implants: Wound dimensions 15 x 8 x 2 CM Anesthesia: GLMA Surgeon: Ab Lino Pathology: other Description of procedure: Trimmed toe nails and extirpated great toe nail of left foot. Rxcision of necrotic eschar eschar and slough, un rocio of abscesses and sharp excision of exposed bone in the wounds. Lateral proximal area; Condition: stable Disposition: floor
[2016-08-19] MEDS: SIMVASTATIN 10 MG TABLET PO SCH (20:01)
--- NOTE | 2016-08-19 20:30 | General Surgery Progress Note ---
Subjective Patient reports: other (BLEEDING from Left foot soaking through the bandages. NO signs of hypotension. VSS.) Narrative: Note initiated : 08/19/16 at 8:24 pm Service Date, if different from initiated Date: [] Patient: Jacoby Silver 61 y/o M admitted on 08/19/16 for Wound Debridement/Cellulitis & Abscess of Foot. Chief Complaint: [] Objective Temp Pulse Resp BP Pulse Ox 97.6 F 85 18 128/73 94 08/19/16 17:35 08/19/16 18:35 08/19/16 18:35 08/19/16 18:35 08/19/16 18:35 20:30 HRS Pulse 94 116/80 O2 sats over 90 % Comfortable, DENIES pain, N?V talking with nurses. Lungs are CTA, Heart sounds normal. I removed the AVE bandage, ABD up to the level of Kerlix gauze. Further reinforced this gauze, Kerlix and Coban bandage. Observed patient for some more time and progress reviewed with Dr. Pitt and nursing staff. Patient is anemic and will be given PRBC. Will monitor. - Additional Data Intake & Output - Last 24 hours: Intake & Output 08/17/16 08/18/16 08/19/16 08/20/16 05:59 05:59 05:59 05:59 Intake Total 990 / 990 Output Total 1325 / 2150 Balance -335 / -1160 Weight 182 lb 8 oz - Labs 08/19/16 16:45 08/19/16 16:45 Diabetes panel 08/19/16 Range/Units 16:45 Sodium 137 (133-145) mmol/L Potassium 4.7 (3.3-5.1) mmol/L Chloride 99 (96-108) mmol/L Carbon Dioxide 24 (22-30) mmol/L BUN 8 (8-23) mg/dl Creatinine 0.8 (0.7-1.2) mg/dl Glucose 146 H (70-105) mg/dL Calcium panel 08/19/16 Range/Units 16:45 Ionized Calcium Abigail 1.25 (1.16-1.32) mmol/L Pituitary panel 08/19/16 Range/Units 16:45 Sodium 137 (133-145) mmol/L Potassium 4.7 (3.3-5.1) mmol/L Chloride 99 (96-108) mmol/L Carbon Dioxide 24 (22-30) mmol/L BUN 8 (8-23) mg/dl Creatinine 0.8 (0.7-1.2) mg/dl Glucose 146 H (70-105) mg/dL Adrenal panel 08/19/16 Range/Units 16:45 Sodium 137 (133-145) mmol/L Potassium 4.7 (3.3-5.1) mmol/L Chloride 99 (96-108) mmol/L Carbon Dioxide 24 (22-30) mmol/L BUN 8 (8-23) mg/dl Creatinine 0.8 (0.7-1.2) mg/dl Glucose 146 H (70-105) mg/dL Medical - PN: A/P - Time Spent With Patient Total time spent is greater than 50% in coordination of care (as documented) at patient's floor/unit and/or counseling patient: Post operative bleeding LEFT foot. Dressings taken down and reinforced. Greater than 35 minutes (1) Gangrene associated with diabetes mellitus Status: Acute Current Visit: Yes (2) Amputation of little toe Status: Acute Current Visit: Yes (3) Amputation of toe, traumatic, complicated Status: Acute Current Visit: Yes
[2016-08-19] MEDS ORDERED: FAMOTIDINE/PF 20 MG/2 ML VIAL IV SCH (21:00)
[2016-08-19] MEDS ORDERED: SIMVASTATIN 10 MG TABLET PO SCH (21:00)
[2016-08-19] MEDS ORDERED: SENNOSIDES 1 TABLET PO PRN ×2 (21:00)
[2016-08-19] MEDS: VANCOMYCIN 1,000 MG in 0.9 % SODIUM CHLORIDE 250 ML IV SCH (21:19)
[2016-08-20] MEDS: 0.9 % SODIUM CHLORIDE 250 ML IV SCH ×2 (00:20→02:50)
[2016-08-20] MEDS: 0.9 % SODIUM CHLORIDE 10 ML SYRINGE IV SCH ×6 (02:39→22:29)
[2016-08-20] MEDS: oxyCODONE HCL 5 MG TABLET PO PRN ×2 (02:39→20:18)
[2016-08-20] MEDS: PIPERACILLIN SODIUM/TAZOBACTAM 3.375 GM in DEXTROSE 5% IN WATER 50 ML IV SCH ×4 (05:30→18:36)
[2016-08-20] MEDS: DEXTROSE 5%-1/2NS 1,000 ML IV SCH (05:31)
[2016-08-20 06:17] LABS: Basophils # (Auto) 0 K/mcL (0.0-0.3); Basophils % (Auto) 0.3 % (0.0-2.0); Eosinophils # (Auto) 0 K/mcL (0.0-0.7); Eosinophils % (Auto) 0 % (0.0-7.0); Granulocytes % (Auto) 78.3 % (38.0-78.0); Lymphocytes # (Auto) 1.9 K/mcL (1.5-4.8); Lymphocytes % (Auto) 17.6 % (15.5-49.0); Mean Cell Volume 92.5 fL (80.0-100.0); Mean Corpuscular HGB Conc 32.9 g/dL (31.0-36.0); Mean Corpuscular Hemoglobin 30.5 pg (26.0-34.0); Monocytes # (Auto) 0.4 K/mcL (0.1-0.9); Monocytes % (Auto) 3.8 % (1.0-9.0); Platelet Count 477 K/mcL (140-440); RBC 3.11 M/mcL (4.50-5.90); Red Cell Distribution Width 14.7 % (11.5-14.5)
[2016-08-20 06:31] LABS: ALT/SGPT 6 U/l (0-40); Albumin 3.3 gm/dL (3.2-5.2); Albumin/Globulin Ratio 0.9 (1.0-2.3); Alkaline Phosphatase 74 U/L (39-117); Bilirubin,Direct < 0.2 mg/dL (0.0-0.3); Blood Urea Nitrogen 9 mg/dl (8-23); Gamma Glutamyl Transpeptidase 64 U/L (8-61); Magnesium 2.1 mg/dL (1.6-2.5); Phosphorous 2.9 mg/dL (2.7-4.5); Uric Acid 3.4 mg/dL (2.5-8.0)
[2016-08-20] MEDS: INSULIN LISPRO 1 UNIT/0.01 ML UNIT SQ SCH ×4 (07:54→20:37)
[2016-08-20] MEDS: buPROPion 150 MG TAB.SR.12H PO SCH (07:56)
[2016-08-20] MEDS: FAMOTIDINE/PF 20 MG/2 ML VIAL IV SCH ×2 (07:58→20:19)
[2016-08-20] MEDS: LISINOPRIL 10 MG TABLET PO SCH (07:58)
[2016-08-20] MEDS: VANCOMYCIN 1,000 MG in 0.9 % SODIUM CHLORIDE 250 ML IV SCH ×2 (08:59→17:01)
[2016-08-20] MEDS ORDERED: buPROPion 150 MG TAB.SR.12H PO SCH (09:00)
[2016-08-20] MEDS ORDERED: LISINOPRIL 10 MG TABLET PO SCH (09:00)
--- NOTE | 2016-08-20 10:25 | General Surgery Progress Note ---
Subjective Patient reports: other Narrative: Note initiated : 08/20/16 at 10:23 am Service Date, if different from initiated Date: [] Patient: Jacoby Silver 61 y/o M admitted on 08/19/16 for Wound Debridement/Cellulitis & Abscess of Foot. Chief Complaint: [] NO further evidence of bleeding after the dressing was changed and packing reinforced. Patient had PRBC transfusion for anemia;. Patient tells me that he does NOT experience any pain or throbbing after the dressing was changed last nite. Objective Temp Pulse Resp BP Pulse Ox 98.7 F 67 14 151/80 97 08/20/16 08:00 08/20/16 08:00 08/20/16 08:00 08/20/16 08:00 08/20/16 08:00 - Additional Data Intake & Output - Last 24 hours: Intake & Output 08/18/16 08/19/16 08/20/16 08/21/16 05:59 05:59 05:59 05:59 Intake Total 1948 / 1948 1450 / 1450 Output Total 2275 / 3100 1375 / 1375 Balance -327 / -1152 75 / 75 Weight 182 lb 8 oz - General physical appearance well developed, well nourished, no distress, no pain - Eyes PERRL - ENT normal pinna, normal nares, normal mucosa, no congestion - Neck trachea midline, no venous distension - Respiratory normal expansion, clear to auscultation - Abdomen non tender, bowel sounds - Integumentary other - Neurologic normal coordination, normal sensation, other (Dressings left foot are CDI) - Musculoskeletal normal gait - Psychiatric oriented to time, oriented to person, speech is normal - Labs 08/20/16 05:30 08/20/16 05:30 Diabetes panel 08/19/16 08/20/16 Range/Units 16:45 05:30 Sodium 137 133 (133-145) mmol/L Potassium 4.7 4.6 (3.3-5.1) mmol/L Chloride 99 98 (96-108) mmol/L Carbon Dioxide 24 23 (22-30) mmol/L BUN 8 9 (8-23) mg/dl Creatinine 0.8 0.7 (0.7-1.2) mg/dl Glucose 146 H 203 H (70-105) mg/dL Calcium 8.7 (8.6-10.4) mg/dl AST 9 (0-37) U/l ALT 6 (0-40) U/l Alkaline Phosphatase 74 (39-117) U/L Total Protein 7.1 (5.9-8.4) gm/dL Albumin 3.3 (3.2-5.2) gm/dL Triglycerides 106 (<150) mg/dl Calcium panel 08/19/16 08/20/16 Range/Units 16:45 05:30 Calcium 8.7 (8.6-10.4) mg/dl Ionized Calcium Abigail 1.25 (1.16-1.32) mmol/L Phosphorus 2.9 (2.7-4.5) mg/dL Albumin 3.3 (3.2-5.2) gm/dL Pituitary panel 08/19/16 08/20/16 Range/Units 16:45 05:30 Sodium 137 133 (133-145) mmol/L Potassium 4.7 4.6 (3.3-5.1) mmol/L Chloride 99 98 (96-108) mmol/L Carbon Dioxide 24 23 (22-30) mmol/L BUN 8 9 (8-23) mg/dl Creatinine 0.8 0.7 (0.7-1.2) mg/dl Glucose 146 H 203 H (70-105) mg/dL Calcium 8.7 (8.6-10.4) mg/dl Adrenal panel 08/19/16 08/20/16 Range/Units 16:45 05:30 Sodium 137 133 (133-145) mmol/L Potassium 4.7 4.6 (3.3-5.1) mmol/L Chloride 99 98 (96-108) mmol/L Carbon Dioxide 24 23 (22-30) mmol/L BUN 8 9 (8-23) mg/dl Creatinine 0.8 0.7 (0.7-1.2) mg/dl Glucose 146 H 203 H (70-105) mg/dL Calcium 8.7 (8.6-10.4) mg/dl Total Bilirubin 0.5 (0.0-1.0) mg/dL AST 9 (0-37) U/l ALT 6 (0-40) U/l Alkaline Phosphatase 74 (39-117) U/L Total Protein 7.1 (5.9-8.4) gm/dL Albumin 3.3 (3.2-5.2) gm/dL Medical - PN: A/P - Time Spent With Patient Total time spent is greater than 50% in coordination of care (as documented) at patient's floor/unit and/or counseling patient: Spoke with patient, Hospitalist and Nursing staff. Will leave dressing alone for next 1 to 2 days and follow clinically. WOUND c/s seen. Plan on getting a PICC line and IV antibiotics and ID consult at [facility] after w/e. Start HBO T for necrotizing skin and soft tissue infection AND acute ischemia PAD treated by intervention radiology. 15 - 24 minutes (1) Gangrene associated with diabetes mellitus Status: Acute Current Visit: Yes (2) Amputation of little toe Status: Acute Current Visit: Yes (3) Amputation of toe, traumatic, complicated Status: Acute Current Visit: Yes
--- NOTE | 2016-08-20 11:20 | Internal Med Progress Note ---
Medical - PN: Subj Patient information: Note initiated : 08/20/16 at 11:16 am Service Date, if different from initiated Date: [] Patient: Jacoby Silver 61 y/o M admitted on 08/19/16 for Wound Debridement/Cellulitis & Abscess of Foot. Chief Complaint: [] Interval history: patient seen examined no acute concerns he was lying comfortably in bed did not report any acute concerns, s/p debridement yesterday, some bleeding which was resolved by redressing the wound by Dr Cosby. The patient will need PICC access for IV antibiotics, likely 4-6 weeks. He will need ID follow up as outpatient, On discussing the case with Dr Cosby, the patient needs to have hyperbaric treatments for his wounds. This facility seems to be out of network and there are some concerns regarding getting antibiotics as outpatient. In either case we do not have the microbiology available yet, will adjust antibiotics based on antibiotics and the patient will likely be d/c on monday. Pertinent ROS: Denies headache, dizziness Denies chest pain, palpitations Denies cough or shortness of breath Denies abdominal pain, nausea or vomiting. - Constitutional Vitals: Vital Signs Temp Pulse Resp BP Pulse Ox 98.7 F 67 14 151/80 97 08/20/16 08:00 08/20/16 08:00 08/20/16 08:00 08/20/16 08:00 08/20/16 08:00 Period Temp Pulse Resp BP Sys/Clements Pulse Ox Last 24 Hr 95.4 F-98.7 F 66-88 14-20 101-166/56-93 93-100 Intake and Output 08/19/16 08/20/16 08/20/16 21:59 05:59 13:59 Intake Total 990 / 990 908 / 908 1450 / 1450 Output Total 400 / 400 750 / 750 1375 / 1375 Balance 590 / 590 158 / 158 75 / 75 Weight 182 lb 8 oz Intake & Output: Intake & Output 08/19/16 08/20/16 08/20/16 21:59 05:59 13:59 Intake Total 990 / 990 908 / 908 1450 / 1450 Output Total 400 / 400 750 / 750 1375 / 1375 Balance 590 / 590 158 / 158 75 / 75 Weight 182 lb 8 oz Intake: IV 750 / 750 583 / 583 450 / 450 Dextrose 5%-1/2Ns IV 573 / 573 0 / 0 Solution 1,000 ml @ 84 mls/hr IV .[id number] [facility] Rx #:[id number] Lactated Ringers 1,000 ml 700 / 700 @ 20 mls/hr IV .Q24H [facility] Rx#:[id number] Dextrose 5% in Water 50 50 / 50 50 / 50 ml @ 100 mls/hr IV Q6 [facility] with Zosyn 3.375 gm Rx#: [id number] Sodium Chloride 0.9% 250 10 / 10 ml @ 250 mls/hr IV Q12H [facility] with Vancomycin 1,000 mg Rx#:[id number] Oral 240 / 240 700 / 700 Blood Product 325 / 325 300 / 300 Output: Void Amount 400 / 400 750 / 750 1375 / 1375 Other: Meal Dinner Snack Breakfast Percent of Meal Consumed 100% 100% 100% Feeding Ability Assist with Tray Set Up Independent Independent # Voids 1 Exam: Constitutional; Afebrile, cooperative, alert, not in distress. Eyes- No icterus, Pupils equal, reactive, No periorbital swelling Ears- Ext ear normal, hearing normal to conversation. Neck- Midline trachea, supple Respiratory system: Air Entry equal on both sides, No crackles or wheezing, no rhonchi. CVS- Rate rhythm regular, S1,S2 heard, no gallop, no rub. Abdomen- Soft nontender abdomen, no organomegaly, no tenderness, no guarding or rigidity, PHARMACY HELPER- AOOx3, moving all extremities, no focal deficit noted. Medical - PN: Obj Da - Labs CBC & Chem 7: 08/20/16 05:30 08/20/16 05:30 Labs: Abnormal Lab Results 08/20/16 08/20/16 08/19/16 05:30 05:30 16:45 RBC 3.11 L Hgb 9.5 L 8.4 L Hct 28.8 L 25.3 L RDW 14.7 H Plt Count 477 H MPV 5.9 L Gran % 78.3 H Gran # 8.3 H Glucose 203 H GGT 64 H Globulin 3.8 H Albumin/Globulin Ratio 0.9 L 08/19/16 16:45 RBC Hgb Hct RDW Plt Count MPV Gran % Gran # Glucose 146 H GGT Globulin Albumin/Globulin Ratio Meds: Medications Acetaminophen (Tylenol) 650 mg PO Q6HP PRN PRN Reason: PAIN/FEVER > 101 Bisacodyl (Dulcolax) 10 mg GA Q2-3DAYS PRN PRN Reason: Constipation Bupropion HCl (Wellbutrin Sr) 150 mg PO QDAY [facility] Last Admin: 08/20/16 07:56 Dose: 150 mg Dextrose (Dextrose 50%) 0 ml IV UD PRN PRN Reason: Hypoglycemia Diagnostic Test (Pha) (Accu-Chek) 1 each FS ACHS [facility] Last Admin: 08/20/16 07:35 Dose: 1 each Famotidine (Pepcid) 20 mg IV Q12 [facility] Last Admin: 08/20/16 07:58 Dose: 20 mg Hydromorphone HCl (Dilaudid) 0.5 mg IV Q2HP PRN PRN Reason: Pain Last Admin: 08/19/16 20:02 Dose: 0.5 mg Piperacillin Sod/Tazobactam (Sod 3.375 gm/ Dextrose) 50 mls @ 100 mls/hr IV Q6 [facility] Last Infusion: 08/20/16 06:00 Dose: Infused Vancomycin HCl 1,000 mg/ (Sodium Chloride) 250 mls @ 250 mls/hr IV Q12H [facility] Last Admin: 08/20/16 08:59 Dose: 250 mls/hr Insulin Human Lispro (Humalog) 0 unit SQ [facility] PRN Reason: Protocol Last Admin: 08/20/16 07:54 Dose: 3 unit Lisinopril (Zestril) 10 mg PO QDAY [facility] Last Admin: 08/20/16 07:58 Dose: 10 mg Magnesium Hydroxide (Milk Of Magnesia) 30 ml PO DAILYP PRN PRN Reason: Constipation Naloxone HCl (Narcan) 0.1 mg IV Q2MIN PRN PRN Reason: Opiate Reversal Ondansetron HCl (Zofran) 4 mg IV Q6HP PRN PRN Reason: Nausea And Vomiting Oxycodone HCl (Roxicodone) 5 mg PO Q4HP PRN PRN Reason: Pain Last Admin: 08/20/16 02:39 Dose: 5 mg Promethazine HCl (Phenergan) 12.5 mg IV Q6HP PRN PRN Reason: Nausea And Vomiting Senna (Senokot) 2 tab PO HSP PRN PRN Reason: Constipation Simvastatin (Zocor) 10 mg PO HS [facility] Last Admin: 08/19/16 20:01 Dose: 10 mg Sodium Biphosphate/Sodium Phosphate (Fleets Adult) 1 dose GA Q3-4DAYS PRN PRN Reason: Constipation Sodium Chloride (Saline Flush) 10 ml IV Q8 [facility] Last Admin: 08/20/16 08:23 Dose: 10 ml Medical - PN: A/P - Time Spent With Patient Total time spent is greater than 50% in coordination of care (as documented) at patient's floor/unit and/or counseling patient: (1) Cellulitis and abscess of foot Status: Acute Current Visit: Yes (2) Diabetes mellitus Status: Acute Current Visit: Yes (3) Hypertension associated with diabetes Status: Acute Current Visit: Yes (4) Hyperlipidemia associated with type 2 diabetes mellitus Status: Acute Current Visit: Yes (5) Peripheral vascular disease Status: Acute Current Visit: Yes (6) Anemia Status: Acute Current Visit: Yes - Narrative A/P Narrative: Plan the patient will continue with IV antibiotics, vanco and zosyn Will descalate/ adjust therapy based on cultures. DM - FS high today, was on d5 for hydratino given yesterday glucose was low, he is able to tolerate po diet now, plan to d/c fluids and monitor glucose Dispo- As per Wound wound care technician/ case management. DVT- hep sq diet diabetic Medical - PN: Qual - VTE Deep Vein Thrombosis/Pulmonary Embolism Present on Admission: No
--- NOTE | 2016-08-20 11:56 | XRay Report ---
CLINICAL INFORMATION: PICC placement COMPARISON: 08/18/2016 FINDINGS: ] PICC line tip overlies the brachycephalic SVC junction. Nurses instructed to advance the line 7 cm. The heart is mildly enlarged, but stable. Mediastinum and pulmonary vessels are normal. Lungs are clear. No effusions IMPRESSION: Simple cardiomegaly. PICC line as described Interpreted and Authenticated by: Itz Alberto 08/20/16
[2016-08-20 11:59] LABS: Ionized Calcium 1.22 mmol/L (1.16-1.32)
[2016-08-20 12:10] LABS: Blood Urea Nitrogen 8 mg/dl (8-23)
[2016-08-20] MEDS: HYDROmorphone 2 MG/ML SYRINGE IV PRN (18:57)
[2016-08-20] MEDS: HEPARIN 5,000 UNIT/ML VIAL SQ SCH (20:18)
[2016-08-20] MEDS: SIMVASTATIN 10 MG TABLET PO SCH (20:34)
[2016-08-21] MEDS: PIPERACILLIN SODIUM/TAZOBACTAM 3.375 GM in DEXTROSE 5% IN WATER 50 ML IV SCH ×5 (00:44→23:36)
[2016-08-21 05:04] LABS: Basophils # (Auto) 0.1 K/mcL (0.0-0.3); Basophils % (Auto) 0.7 % (0.0-2.0); Eosinophils # (Auto) 0.2 K/mcL (0.0-0.7); Eosinophils % (Auto) 2.1 % (0.0-7.0); Lymphocytes # (Auto) 4.1 K/mcL (1.5-4.8); Lymphocytes % (Auto) 37.3 % (15.5-49.0); Mean Cell Volume 93.3 fL (80.0-100.0); Mean Corpuscular Hemoglobin 30.8 pg (26.0-34.0); Monocytes # (Auto) 0.5 K/mcL (0.1-0.9); Monocytes % (Auto) 4.9 % (1.0-9.0); Platelet Count 480 K/mcL (140-440); Red Cell Distribution Width 14.6 % (11.5-14.5)
[2016-08-21] MEDS: VANCOMYCIN 1,000 MG in 0.9 % SODIUM CHLORIDE 250 ML IV SCH ×2 (05:04→16:53)
[2016-08-21 05:24] LABS: ALT/SGPT 13 U/l (0-40); Albumin 3.4 gm/dL (3.2-5.2); Albumin/Globulin Ratio 0.9 (1.0-2.3); Alkaline Phosphatase 82 U/L (39-117); Bilirubin,Direct < 0.2 mg/dL (0.0-0.3); Blood Urea Nitrogen 9 mg/dl (8-23); Gamma Glutamyl Transpeptidase 95 U/L (8-61); Magnesium 2.1 mg/dL (1.6-2.5); Phosphorous 3.1 mg/dL (2.7-4.5); Uric Acid 3.4 mg/dL (2.5-8.0)
[2016-08-21] MEDS: 0.9 % SODIUM CHLORIDE 10 ML SYRINGE IV SCH ×3 (05:28→20:39)
[2016-08-21] MEDS: INSULIN LISPRO 1 UNIT/0.01 ML UNIT SQ SCH ×4 (07:36→20:38)
[2016-08-21] MEDS: FAMOTIDINE/PF 20 MG/2 ML VIAL IV SCH ×2 (08:32→20:29)
[2016-08-21] MEDS: HEPARIN 5,000 UNIT/ML VIAL SQ SCH ×2 (08:32→20:30)
[2016-08-21] MEDS: glipiZIDE 5 MG TAB.XL.24H PO SCH (08:33)
[2016-08-21] MEDS: LISINOPRIL 10 MG TABLET PO SCH (08:33)
[2016-08-21] MEDS: buPROPion 150 MG TAB.SR.12H PO SCH (08:34)
--- NOTE | 2016-08-21 10:52 | Internal Med Progress Note ---
Medical - PN: Subj Patient information: Note initiated : 08/21/16 at 10:50 am Service Date, if different from initiated Date: [] Patient: Jacoby Silver 61 y/o M admitted on 08/19/16 for Wound Debridement/Cellulitis & Abscess of Foot. Chief Complaint: [] Interval history: The patient seen examined, no acute overnight events No bleeding from the site, wound wrapped, plan to change the dressing today or tomorrow. The patients labs/ microbiology reviewed, no concerns. Patients pain is well controlled with current regiem. he was comfortable, tolerating po diet well. The patient glucose was high, his home dose of glipizide was resumed this AM. He remains of sliding scale insulin. Pertinent ROS: Denies headache, dizziness Denies chest pain, palpitations Denies cough or shortness of breath Denies abdominal pain, nausea or vomiting. - Constitutional Vitals: Vital Signs Temp Pulse Resp BP Pulse Ox 98.0 F 64 16 148/76 97 08/21/16 06:45 08/21/16 06:45 08/21/16 06:45 08/21/16 06:45 08/21/16 06:45 Period Temp Pulse Resp BP Sys/Clements Pulse Ox Last 24 Hr 97.5 F-98.7 F 64-70 14-20 131-148/68-76 96-99 Intake and Output 08/20/16 08/21/16 08/21/16 21:59 05:59 13:59 Intake Total 1140 / 1140 550 / 550 480 / 480 Output Total 425 / 425 2400 / 2400 Balance 715 / 715 -1850 / -1850 480 / 480 Weight 186 lb Intake & Output: Intake & Output 08/20/16 08/21/16 08/21/16 21:59 05:59 13:59 Intake Total 1140 / 1140 550 / 550 480 / 480 Output Total 425 / 425 2400 / 2400 Balance 715 / 715 -1850 / -1850 480 / 480 Weight 186 lb Intake: IV 300 / 300 50 / 50 Dextrose 5% in Water 50 50 / 50 50 / 50 ml @ 100 mls/hr IV Q6 [facility] with Zosyn 3.375 gm Rx#: [id number] Sodium Chloride 0.9% 250 250 / 250 ml @ 250 mls/hr IV Q12H [facility] with Vancomycin 1,000 mg Rx#:[id number] Oral 840 / 840 500 / 500 480 / 480 Output: Void Amount 425 / 425 2400 / 2400 Other: Meal Dinner Percent of Meal Consumed 100% # Bowel Movements 1 1 Exam: Constitutional; Afebrile, cooperative, alert, not in distress. Eyes- No icterus, Pupils equal, reactive, No periorbital swelling Ears- Ext ear normal, hearing normal to conversation. Neck- Midline trachea, supple Respiratory system: Air Entry equal on both sides, No crackles or wheezing, no rhonchi. CVS- Rate rhythm regular, S1,S2 heard, no gallop, no rub. Abdomen- Soft nontender abdomen, no organomegaly, no tenderness, no guarding or rigidity, OFFICE ASSOCIATE- AOOx3, moving all extremities, no focal deficit noted. Medical - PN: Obj Da - Labs CBC & Chem 7: 08/21/16 04:00 08/21/16 04:00 Labs: Abnormal Lab Results 08/21/16 08/21/16 08/20/16 04:00 04:00 10:40 WBC 11.1 H RBC 3.00 L Hgb 9.2 L Hct 27.9 L RDW 14.6 H Plt Count 480 H MPV 5.9 L Gran % Gran # Sodium 132 L Glucose 121 H 185 H GGT 95 H Globulin Albumin/Globulin Ratio 0.9 L 08/20/16 08/20/16 08/19/16 05:30 05:30 16:45 WBC RBC 3.11 L Hgb 9.5 L 8.4 L Hct 28.8 L 25.3 L RDW 14.7 H Plt Count 477 H MPV 5.9 L Gran % 78.3 H Gran # 8.3 H Sodium Glucose 203 H GGT 64 H Globulin 3.8 H Albumin/Globulin Ratio 0.9 L 08/19/16 16:45 WBC RBC Hgb Hct RDW Plt Count MPV Gran % Gran # Sodium Glucose 146 H GGT Globulin Albumin/Globulin Ratio Meds: Medications Acetaminophen (Tylenol) 650 mg PO Q6HP PRN PRN Reason: PAIN/FEVER > 101 Bisacodyl (Dulcolax) 10 mg NM Q2-3DAYS PRN PRN Reason: Constipation Bupropion HCl (Wellbutrin Sr) 150 mg PO QDAY [facility] Last Admin: 08/21/16 08:34 Dose: 150 mg Dextrose (Dextrose 50%) 0 ml IV UD PRN PRN Reason: Hypoglycemia Diagnostic Test (Pha) (Accu-Chek) 1 each FS ACHS [facility] Last Admin: 08/21/16 07:02 Dose: 1 each Famotidine (Pepcid) 20 mg IV Q12 [facility] Last Admin: 08/21/16 08:32 Dose: 20 mg Glipizide (Glucotrol Xl) 5 mg PO QAMAC [facility] Last Admin: 08/21/16 08:33 Dose: 5 mg Heparin Sodium (Porcine) (Heparin) 5,000 unit SQ Q12 [facility] Last Admin: 08/21/16 08:32 Dose: Not Given Heparin Sodium (Porcine) (Heparin Flush) 2 ml IV Q12 [facility] Last Admin: 08/21/16 08:32 Dose: 2 ml Heparin Sodium (Porcine) (Heparin Flush) 2 ml IV Q12 [facility] Last Admin: 08/21/16 08:33 Dose: 2 ml Hydromorphone HCl (Dilaudid) 0.5 mg IV Q2HP PRN PRN Reason: Pain Last Admin: 08/20/16 18:57 Dose: 0.5 mg Piperacillin Sod/Tazobactam (Sod 3.375 gm/ Dextrose) 50 mls @ 100 mls/hr IV Q6 [facility] Last Admin: 08/21/16 05:04 Dose: 100 mls/hr Vancomycin HCl 1,000 mg/ (Sodium Chloride) 250 mls @ 250 mls/hr IV Q12H [facility] Last Admin: 08/21/16 05:04 Dose: 250 mls/hr Insulin Human Lispro (Humalog) 0 unit SQ [facility] PRN Reason: Protocol Last Admin: 08/21/16 07:36 Dose: 1 unit Lisinopril (Zestril) 10 mg PO QDAY [facility] Last Admin: 08/21/16 08:33 Dose: 10 mg Magnesium Hydroxide (Milk Of Magnesia) 30 ml PO DAILYP PRN PRN Reason: Constipation Naloxone HCl (Narcan) 0.1 mg IV Q2MIN PRN PRN Reason: Opiate Reversal Ondansetron HCl (Zofran) 4 mg IV Q6HP PRN PRN Reason: Nausea And Vomiting Oxycodone HCl (Roxicodone) 5 mg PO Q4HP PRN PRN Reason: Pain Last Admin: 08/20/16 20:18 Dose: 5 mg Promethazine HCl (Phenergan) 12.5 mg IV Q6HP PRN PRN Reason: Nausea And Vomiting Senna (Senokot) 2 tab PO HSP PRN PRN Reason: Constipation Simvastatin (Zocor) 10 mg PO HS [facility] Last Admin: 08/20/16 20:34 Dose: 10 mg Sodium Biphosphate/Sodium Phosphate (Fleets Adult) 1 dose NM Q3-4DAYS PRN PRN Reason: Constipation Sodium Chloride (Saline Flush) 10 ml IV Q8 [facility] Last Admin: 08/21/16 05:28 Dose: 10 ml Medical - PN: A/P - Time Spent With Patient Total time spent is greater than 50% in coordination of care (as documented) at patient's floor/unit and/or counseling patient: (1) Cellulitis and abscess of foot Status: Acute Current Visit: Yes (2) Diabetes mellitus Status: Acute Current Visit: Yes (3) Hypertension associated with diabetes Status: Acute Current Visit: Yes (4) Anemia Status: Acute Current Visit: Yes - Narrative A/P Narrative: The patient is post op day 2, no bleeding, Cellutlitis/ Possible osteomyelitis: Continue on IV antibiotics, vancomycin and zosyn, await culture results, will need 4-6 weeks of IV antibiotics, this can be decided by ID as outpatient. DM: Glucose high, resumed glipizide today, continue to monitor glucose ACHS, sliding scale insulin. Adjust if glucose is still high Anemia- H/H stable, transfuse to keep hb .8 DVT hep sq Diet diabetic diet Dispo as per Wound care consult. Medical - PN: Qual - VTE Deep Vein Thrombosis/Pulmonary Embolism Present on Admission: No
--- NOTE | 2016-08-21 15:29 | General Surgery Progress Note ---
Subjective Narrative: Note initiated : 08/21/16 at 3:25 pm Service Date, if different from initiated Date: [] Patient: Jacoby Silver 61 y/o M admitted on 08/19/16 for Wound Debridement/Cellulitis & Abscess of Foot. Chief Complaint: [] Patient had an uneventful night. NO further bleeding from LEFT foot wound. Dressing is CDI. Objective Temp Pulse Resp BP Pulse Ox 98.0 F 66 20 150/88 99 08/21/16 11:44 08/21/16 11:44 08/21/16 11:44 08/21/16 11:44 08/21/16 11:44 AVSS. NO changes in MORE. LEFT foot dressings are CDI For primary change of dressing tomorrow Monday08/22/2015 AM - Additional Data Intake & Output - Last 24 hours: Intake & Output 08/19/16 08/20/16 08/21/16 08/22/16 05:59 05:59 05:59 05:59 Intake Total 1948 / 1948 4530 / 4530 930 / 930 Output Total 2275 / 3100 4200 / 4200 1350 / 1350 Balance -327 / -1152 330 / 330 -420 / -420 Weight 182 lb 8 oz 186 lb - Labs 08/21/16 04:00 08/21/16 04:00 Diabetes panel 08/21/16 Range/Units 04:00 Sodium 137 (133-145) mmol/L Potassium 4.5 (3.3-5.1) mmol/L Chloride 100 (96-108) mmol/L Carbon Dioxide 25 (22-30) mmol/L BUN 9 (8-23) mg/dl Creatinine 0.7 (0.7-1.2) mg/dl Glucose 121 H (70-105) mg/dL Calcium 8.8 (8.6-10.4) mg/dl AST 23 (0-37) U/l ALT 13 (0-40) U/l Alkaline Phosphatase 82 (39-117) U/L Total Protein 7.0 (5.9-8.4) gm/dL Albumin 3.4 (3.2-5.2) gm/dL Triglycerides 115 (<150) mg/dl Calcium panel 08/21/16 Range/Units 04:00 Calcium 8.8 (8.6-10.4) mg/dl Phosphorus 3.1 (2.7-4.5) mg/dL Albumin 3.4 (3.2-5.2) gm/dL Pituitary panel 08/21/16 Range/Units 04:00 Sodium 137 (133-145) mmol/L Potassium 4.5 (3.3-5.1) mmol/L Chloride 100 (96-108) mmol/L Carbon Dioxide 25 (22-30) mmol/L BUN 9 (8-23) mg/dl Creatinine 0.7 (0.7-1.2) mg/dl Glucose 121 H (70-105) mg/dL Calcium 8.8 (8.6-10.4) mg/dl Adrenal panel 08/21/16 Range/Units 04:00 Sodium 137 (133-145) mmol/L Potassium 4.5 (3.3-5.1) mmol/L Chloride 100 (96-108) mmol/L Carbon Dioxide 25 (22-30) mmol/L BUN 9 (8-23) mg/dl Creatinine 0.7 (0.7-1.2) mg/dl Glucose 121 H (70-105) mg/dL Calcium 8.8 (8.6-10.4) mg/dl Total Bilirubin 0.4 (0.0-1.0) mg/dL AST 23 (0-37) U/l ALT 13 (0-40) U/l Alkaline Phosphatase 82 (39-117) U/L Total Protein 7.0 (5.9-8.4) gm/dL Albumin 3.4 (3.2-5.2) gm/dL Medical - PN: A/P - Time Spent With Patient Total time spent is greater than 50% in coordination of care (as documented) at patient's floor/unit and/or counseling patient: Satisfactory Progress. CPT. ANTICIPATE discharge tomorrow, with out patient IV antibiotics and dressing changes daily . For HBOT starting tomorrow as OUT PATIENT, when arrangements are completed and authorizations are in place. 15 - 24 minutes (1) Gangrene associated with diabetes mellitus Status: Acute Current Visit: Yes (2) Amputation of little toe Status: Acute Current Visit: Yes (3) Amputation of toe, traumatic, complicated Status: Acute Current Visit: Yes
[2016-08-21] MEDS: oxyCODONE HCL 5 MG TABLET PO PRN (20:28)
[2016-08-21] MEDS: SIMVASTATIN 10 MG TABLET PO SCH (20:28)
[2016-08-21] MEDS: GENTAMICIN SULFATE 40 MG, CLINDAMYCIN 300 MG, BACITRACIN 25,000 UNIT in SODIUM CHLORIDE... IRR SCH (20:30)
[2016-08-21] MEDS: HYDROmorphone 2 MG/ML SYRINGE IV PRN (23:36)
[2016-08-22 05:28] LABS: Basophils # (Auto) 0.1 K/mcL (0.0-0.3); Basophils % (Auto) 0.9 % (0.0-2.0); Eosinophils # (Auto) 0.4 K/mcL (0.0-0.7); Eosinophils % (Auto) 3.2 % (0.0-7.0); Granulocytes % (Auto) 61.2 % (38.0-78.0); Lymphocytes # (Auto) 3.1 K/mcL (1.5-4.8); Lymphocytes % (Auto) 28.1 % (15.5-49.0); Mean Cell Volume 92.8 fL (80.0-100.0); Mean Corpuscular HGB Conc 32.9 g/dL (31.0-36.0); Mean Corpuscular Hemoglobin 30.6 pg (26.0-34.0); Monocytes # (Auto) 0.7 K/mcL (0.1-0.9); Monocytes % (Auto) 6.6 % (1.0-9.0); Platelet Count 510 K/mcL (140-440); RBC 2.97 M/mcL (4.50-5.90); Red Cell Distribution Width 14.6 % (11.5-14.5)
[2016-08-22] MEDS: VANCOMYCIN 1,000 MG in 0.9 % SODIUM CHLORIDE 250 ML IV SCH (06:01)
[2016-08-22] MEDS: PIPERACILLIN SODIUM/TAZOBACTAM 3.375 GM in DEXTROSE 5% IN WATER 50 ML IV SCH ×2 (06:01→11:46)
[2016-08-22 06:02] LABS: ALT/SGPT 13 U/l (0-40); Albumin 3.4 gm/dL (3.2-5.2); Alkaline Phosphatase 77 U/L (39-117); Bilirubin,Direct < 0.2 mg/dL (0.0-0.3); Blood Urea Nitrogen 8 mg/dl (8-23); Gamma Glutamyl Transpeptidase 90 U/L (8-61); Magnesium 2.1 mg/dL (1.6-2.5); Phosphorous 3.5 mg/dL (2.7-4.5)
[2016-08-22] MEDS: glipiZIDE 5 MG TAB.XL.24H PO SCH (06:56)
[2016-08-22] MEDS: 0.9 % SODIUM CHLORIDE 10 ML SYRINGE IV SCH (06:58)
[2016-08-22] MEDS: INSULIN LISPRO 1 UNIT/0.01 ML UNIT SQ SCH ×2 (06:58→11:46)
[2016-08-22] MEDS: LISINOPRIL 10 MG TABLET PO SCH (07:58)
[2016-08-22] MEDS: FAMOTIDINE/PF 20 MG/2 ML VIAL IV SCH (07:58)
[2016-08-22] MEDS: buPROPion 150 MG TAB.SR.12H PO SCH (07:58)
[2016-08-22] MEDS: HEPARIN 5,000 UNIT/ML VIAL SQ SCH (07:59)
[2016-08-22] MEDS: oxyCODONE HCL 5 MG TABLET PO PRN (08:22)
[2016-08-22] MEDS: HYDROmorphone 2 MG/ML SYRINGE IV PRN (08:22)
--- NOTE | 2016-08-22 09:08 | General Surgery Progress Note ---
Subjective Narrative: Note initiated : 08/22/16 at 9:04 am Service Date, if different from initiated Date: [] Patient: Jacoby Silver 61 y/o M admitted on 08/19/16 for Wound Debridement/Cellulitis & Abscess of Foot. Chief Complaint: []POD # 3 S/P Wide excisional debridement of NECROTIZING GANGRENOUS SOFT TISSUE INFECTION OF LEFT FOOT after 5 th toe amputaion earlier. Patient has NOT had any further bleeding since Monday08/19/2016 evening. His hematocrit is stable above 25 since he was transfused 2 units of PRBC. Today the dressing was changed. The wound is clean and there is early demarcation of eschar evident. Objective Temp Pulse Resp BP Pulse Ox 97.3 F L 69 18 154/77 98 08/22/16 08:00 08/22/16 08:00 08/22/16 08:00 08/22/16 08:00 08/22/16 08:00 No fever VSS. GE WNL. Left foot dressing removed. Demarcating slough and areas of granulation noted. No odor, No crepitus . Patient is able to get OOB and ambulate with FWW and maintain his balance. Culture reports seen . - Additional Data Intake & Output - Last 24 hours: Intake & Output 08/20/16 08/21/16 08/22/16 08/23/16 05:59 05:59 05:59 05:59 Intake Total 1948 / 1948 4530 / 4530 3640 / 3640 Output Total 2275 / 3100 4200 / 4200 2975 / 2975 Balance -327 / -1152 330 / 330 665 / 665 Weight 182 lb 8 oz 186 lb 187 lb - Labs 08/22/16 04:00 08/22/16 04:00 Diabetes panel 08/22/16 Range/Units 04:00 Sodium 137 (133-145) mmol/L Potassium 4.0 (3.3-5.1) mmol/L Chloride 98 (96-108) mmol/L Carbon Dioxide 24 (22-30) mmol/L BUN 8 (8-23) mg/dl Creatinine 0.7 (0.7-1.2) mg/dl Glucose 118 H (70-105) mg/dL Calcium 9.0 (8.6-10.4) mg/dl AST 15 (0-37) U/l ALT 13 (0-40) U/l Alkaline Phosphatase 77 (39-117) U/L Total Protein 6.8 (5.9-8.4) gm/dL Albumin 3.4 (3.2-5.2) gm/dL Triglycerides 110 (<150) mg/dl Calcium panel 08/22/16 Range/Units 04:00 Calcium 9.0 (8.6-10.4) mg/dl Phosphorus 3.5 (2.7-4.5) mg/dL Albumin 3.4 (3.2-5.2) gm/dL Pituitary panel 08/22/16 Range/Units 04:00 Sodium 137 (133-145) mmol/L Potassium 4.0 (3.3-5.1) mmol/L Chloride 98 (96-108) mmol/L Carbon Dioxide 24 (22-30) mmol/L BUN 8 (8-23) mg/dl Creatinine 0.7 (0.7-1.2) mg/dl Glucose 118 H (70-105) mg/dL Calcium 9.0 (8.6-10.4) mg/dl Adrenal panel 08/22/16 Range/Units 04:00 Sodium 137 (133-145) mmol/L Potassium 4.0 (3.3-5.1) mmol/L Chloride 98 (96-108) mmol/L Carbon Dioxide 24 (22-30) mmol/L BUN 8 (8-23) mg/dl Creatinine 0.7 (0.7-1.2) mg/dl Glucose 118 H (70-105) mg/dL Calcium 9.0 (8.6-10.4) mg/dl Total Bilirubin 0.4 (0.0-1.0) mg/dL AST 15 (0-37) U/l ALT 13 (0-40) U/l Alkaline Phosphatase 77 (39-117) U/L Total Protein 6.8 (5.9-8.4) gm/dL Albumin 3.4 (3.2-5.2) gm/dL Medical - PN: A/P - Time Spent With Patient Total time spent is greater than 50% in coordination of care (as documented) at patient's floor/unit and/or counseling patient: Assessment: Patient is progressing well. He is ready to be discharged, subject to co ordination of arrangements by CM / SW. PLAN: OK to go a hospital approved by insurance for IV antibiotics and dressing changes on a daily basis. I D Consult by Dr. LACEY or SENIOR GEOTECHNICAL ENGINEER Noe Alvarez at [facility]. Discharge IV antibiotics to be VANCOMYCIN ONE gram 24 hrs / Pharmacy to monitor levels and adjust dosage. MAY discontinue IV Zosyn and substitute IV INVANZ ONE gram q 24 Hrly. Dressing changes and IV antibiotics to be done daily at the hospital facility. OUT PATIENT HBO treatments at [facility]. See Orders. Please check with wound center for time and schedules. INDICATION FOR HBO treatment : Acute Vascular Ischemia with revascularization, followed by Left 5 th toe amputation. Post operative gangrene and necrotizing soft tissue infection treated with IV antibiotics and surgical Debridement in OR on Monday evening 08/19/2016 . F?U at wound clinic for Doctor's Visit in ONE week. 25 - 35 minutes (1) Gangrene associated with diabetes mellitus Status: Acute Current Visit: Yes (2) Amputation of little toe Status: Acute Current Visit: Yes (3) Amputation of toe, traumatic, complicated Status: Acute Current Visit: Yes
--- NOTE | 2016-08-22 09:15 | Operative Note ---
DATE OF OPERATION: 08/19/2016 PREOPERATIVE DIAGNOSIS: Infected open postoperative wound left foot lateral aspect status post excision of a gangrenous fifth toe. POSTOPERATIVE DIAGNOSIS: Infected open postoperative wound left foot lateral aspect status post excision of a gangrenous fifth toe. OPERATION: 1. Excision of the necrotic tissue. 2. Trimming of toenails and excision of the left first toe infected nail. 3. Unroofing and debridement of multiple abscesses in the left lateral aspect of foot under the plantar fascia aponeurosis. ANESTHESIA: General laryngeal mask airway. SURGEON: Ab Lino MD. WOUND DIMENSIONS: 15 x 8 x 2 cm. INDICATION FOR SURGERY: This patient has a history of noncompliance. He had peripheral artery disease and a gangrenous left fifth toe. He underwent vascular intervention by Dr. Amezcua. After the intervention, he had amputation of left fifth toe by Dr. William over 3 to 4 weeks ago. PROCEDURE NOTE: This patient presented to the wound clinic center and was directly admitted to the hospital. He had black, necrotic gangrenous area of skin with a foul-smelling purulent drainage and multiple areas of tenderness along the wound. The patient has been admitted to the hospital and started on IV antibiotics and is now taken to the operating room for examination under anesthesia, debridement and lavage. After obtaining informed consent, patient was taken to the OR and anesthetized uneventfully in supine position using laryngeal mask airway. Timeout was called. Intravenous antibiotics were already started on the floor. The previous dressings were taken down. Preoperative photograph was taken. First, the foot was widely cleaned, prepped and draped in the standard fashion. We trimmed the toenails, and I excised the left first toe nail as this was grossly deformed, and there was impacted subungual fungus. After the toenails were cleaned, debrided and excised, attention was turned to the left foot. We used a Jergensen scissors toothed pickup and very carefully the necrotic wound edges were sharply excised in stages. The multiple abscesses above the plantar aponeurosis were unroofed with finger dissection. This led to the collection of loculated purulent abscesses. Part of it was sent for microbiology culture studies and the rest of it was sent for pathology. The devitalized tendons, capsules and soft tissues were sharply excised. This led to the exposed bone on the lateral aspect of left foot. This was approximately 2.5 x 2 cm in size. This area of bone was stabilized with a towel clip. Oscillating saw was used, and this segment of bone was sharply excised cleanly. It was sent to pathology for examination and for microbiology studies. We were now left with an open wound with bright red oozing noted from the wound bed and from the bone marrow cavity of the exposed bone site. Hemostasis was achieved after the foot was elevated. Additional cleaning was carried out. We placed Xeroform gauze at this site and reinforced this with open 4 x 4 gauze pieces and snugly bandaged this with AMD Kerlix bandage and further reinforced this with ABD pad and a second AMD Kerlix bandage and EVELYN wrap. Estimated blood loss was approximately 30 mL. Count of swabs, instruments and needles was reported to be correct. This procedure was carried out without tourniquet. The patient recovered from operation and taken to in stable condition. Postoperatively, I went out and spoke with patient's . He has been admitted to the Med/Surg floor. Further ongoing treatment, IV antibiotics will continue. The patient may require postoperative blood transfusion. VD:josé luis Job ID: [id number] Doc ID: [id number] Ab Lino MD
[2016-08-22] MEDS: GENTAMICIN SULFATE 40 MG, CLINDAMYCIN 300 MG, BACITRACIN 25,000 UNIT in SODIUM CHLORIDE... IRR SCH (09:19)
--- NOTE | 2016-08-22 12:04 | Discharge Summary ---
Medical - DS: Prov Patient information: Note initiated : 08/22/16 at 12:00 pm Service Date, if different from initiated Date: [] Patient: Jacoby Silver 61 y/o M admitted on 08/19/16 for Wound Debridement/Cellulitis & Abscess of Foot. Chief Complaint: [] Date of admission: 08/19/16 09:09 Discharge date: 08/22/16 Primary care physician: [dr. Marie Morocho] Admitting clinician: Agapito Pitt Attending physician on discharge: Blanca Crisostomo Medical - DS: Meds - Discharge Medications Prescriptions: Ertapenem [INVanz] 1 gm IM Q24H #21 vial Famotidine 10 mg PO BID PRN #30 tablet PRN Reason: Heartburn Vancomycin 1,000 mg IV Q24H #21 vial oxyCODONE HCL [Roxicodone] 5 mg PO Q4HP PRN #30 tablet PRN Reason: Pain Active and Home Medications: Home Medications HYDROcodone/ACETAMINOPHEN [Hydrocodon-Acetaminophen 5-325] 1 each PO TID PRN [History Confirmed 08/19/16 Last Taken 08/18/16] Active Medications Acetaminophen (Tylenol) 650 mg PO Q6HP PRN PRN Reason: PAIN/FEVER > 101 Bisacodyl (Dulcolax) 10 mg MO Q2-3DAYS PRN PRN Reason: Constipation Bupropion HCl (Wellbutrin Sr) 150 mg PO QDAY [facility] Last Admin: 08/22/16 07:58 Dose: 150 mg Dextrose (Dextrose 50%) 0 ml IV UD PRN PRN Reason: Hypoglycemia Diagnostic Test (Pha) (Accu-Chek) 1 each FS ACHS [facility] Last Admin: 08/22/16 11:45 Dose: 1 each Famotidine (Pepcid) 20 mg IV Q12 [facility] Last Admin: 08/22/16 07:58 Dose: 20 mg Glipizide (Glucotrol Xl) 5 mg PO QAMAC [facility] Last Admin: 08/22/16 06:56 Dose: 5 mg Heparin Sodium (Porcine) (Heparin) 5,000 unit SQ Q12 [facility] Last Admin: 08/22/16 07:59 Dose: Not Given Heparin Sodium (Porcine) (Heparin Flush) 2 ml IV Q12 [facility] Last Admin: 08/22/16 07:58 Dose: 2 ml Heparin Sodium (Porcine) (Heparin Flush) 2 ml IV Q12 [facility] Last Admin: 08/22/16 07:58 Dose: 2 ml Hydromorphone HCl (Dilaudid) 0.5 mg IV Q2HP PRN PRN Reason: Pain Last Admin: 08/22/16 08:22 Dose: 0.5 mg Piperacillin Sod/Tazobactam (Sod 3.375 gm/ Dextrose) 50 mls @ 100 mls/hr IV Q6 [facility] Last Admin: 08/22/16 11:46 Dose: 100 mls/hr Vancomycin HCl 1,000 mg/ (Sodium Chloride) 250 mls @ 250 mls/hr IV Q12H [facility] Last Admin: 08/22/16 06:01 Dose: 250 mls/hr Gentamicin Sulfate 40 mg/Clindamycin Phosphate 300 mg/Bacitracin 25,000 unit/ Sodium Chloride 503 mls @ 0 mls/hr IRR BID [facility] PRN Reason: As Directed Last Admin: 08/22/16 09:19 Dose: 1 mls/hr Insulin Human Lispro (Humalog) 0 unit SQ ACHS [facility] PRN Reason: Protocol Last Admin: 08/22/16 11:46 Dose: Not Given Lisinopril (Zestril) 10 mg PO QDAY [facility] Last Admin: 08/22/16 07:58 Dose: 10 mg Magnesium Hydroxide (Milk Of Magnesia) 30 ml PO DAILYP PRN PRN Reason: Constipation Naloxone HCl (Narcan) 0.1 mg IV Q2MIN PRN PRN Reason: Opiate Reversal Ondansetron HCl (Zofran) 4 mg IV Q6HP PRN PRN Reason: Nausea And Vomiting Oxycodone HCl (Roxicodone) 5 mg PO Q4HP PRN PRN Reason: Pain Last Admin: 08/22/16 08:22 Dose: 5 mg Promethazine HCl (Phenergan) 12.5 mg IV Q6HP PRN PRN Reason: Nausea And Vomiting Senna (Senokot) 2 tab PO HSP PRN PRN Reason: Constipation Simvastatin (Zocor) 10 mg PO HS [facility] Last Admin: 08/21/16 20:28 Dose: 10 mg Sodium Biphosphate/Sodium Phosphate (Fleets Adult) 1 dose MO Q3-4DAYS PRN PRN Reason: Constipation Sodium Chloride (Saline Flush) 10 ml IV Q8 [facility] Last Admin: 08/22/16 06:58 Dose: 10 ml Medical - DS: Hosp Hospital course: Mr. Silver is a 61 year old male that was admitted with a gangrenous left foot wound. He had recently had necrosis of his left pinky toe, and had undergone angioplasty, but then apparently a cholesterol plaque became lodged in artery causing the necrosis. The toe was amputated in June but the patient presented to the wound care clinic on August 18with a nonhealing wound. he did have associated cellulitis with possible osteomyelitis. He has been treated with IV vancomycin and Zosyn pending culture results. Dr. Lino has been managing his wound care during his stay, and the patient is status postwide excisional debridementof the necrotizing soft tissue infection. He has not had any further bleeding since August 19.. At this time he feels that he is stable and may be discharged home, to start outpatient treatment for dressing changes, IV antibiotics, and hyperbaric oxygen therapy. The patient's diabetes was managed with sliding scale insulin, and then oral glipizide was added back. the patient did have postop anemia, and was transfused. Today, the patient notes he is feeling pretty well. He has some minor foot pain , which bothers him more at night. He says it is reasonably well managed with Aleve, Tylenol, and occasional oxycodone. he otherwise denies fever or chills, chest pain or shortness of breath, abdominal pain, nausea or vomiting or diarrhea. On exam, he is in no acute distress He isquite talkative. Neck is supple without obvious JVD. Cardiac exam shows regular rate and rhythm. Lungs are clear to auscultation. Abdomen is soft and nontender. Extremities: Show no significant edema. The left foot is heavily bandaged, and the dressing was just changed this morning by Dr. Lino. Neurologic: Is grossly nonfocal. Assessment and plan: #1. Cellulitis with possible osteomyelitis,with necrotic wound of the left foot. -the wound is progressing as expected. The patient will be discharged home today, and will follow up for daily outpatient wound care and hyperbaric oxygen treatments. -Dr. Lino has changed his IV antibiotics to daily vancomycin and IV Invanz. per Dr. Lino: PLAN: OK to go a hospital approved by insurance for IV antibiotics and dressing changes on a daily basis. I D Consult by Dr. MOTTA or PHTHALIC ACID PURIFIER Noe Alvarez at [facility]. Discharge IV antibiotics to be VANCOMYCIN ONE gram 24 hrs / Pharmacy to monitor levels and adjust dosage. MAY discontinue IV Zosyn and substitute IV INVANZ ONE gram q 24 Hrly. - Dressing changes and IV antibiotics to be done daily at the hospital facility. -OUT PATIENT HBO treatments at [facility]. See Orders. Please check with wound center for time and schedules. - INDICATION FOR HBO treatment : Acute Vascular Ischemia with revascularization, followed by Left 5 th toe amputation. Post operative gangrene and necrotizing soft tissue infection treated with IV antibiotics and surgical Debridement in OR on Monday evening 08/19/2016 . -F/U at wound clinic for Doctor's Visit in ONE week. #2. Diabetes. Glucoses have been running high. Patient will resume his glipizideand metformin. #3. Anemia. Patient was transfused for postoperative anemia. Hematocrit has been stable at 27.6-27.9 over the last 2 days. #4. DVT prophylaxis: Subcutaneous heparin was used. approximately 35-40 minutes has been spent , reviewing the patient's records, reviewing his case with staff and Dr. Lino,interviewing and examining the patient, and writing orders. Discharge diagnosis: cellulitis and left foot wound infection, with necrosis. Type 2 diabetes. - Time Spent with Patient Total time spent providing and/or coordinating discharge services: Greater than 30 minutes Medical - DS: Exam - Constitutional Vitals: Vital Signs Temp Pulse Resp BP Pulse Ox 08/22/16 08:00 97.3 F L 69 18 154/77 98 08/22/16 07:40 97 08/22/16 04:00 98.5 F 84 18 154/84 96 08/21/16 23:47 98.2 F 66 16 136/55 96 08/21/16 20:00 97.1 F L 77 18 156/75 99 08/21/16 16:49 97.8 F 65 18 147/73 98 Intake and Output 08/21/16 08/22/16 08/22/16 21:59 05:59 13:59 Intake Total 1560 / 1560 850 / 850 50 / 50 Output Total 225 / 225 1400 / 1400 400 / 400 Balance 1335 / 1335 -550 / -550 -350 / -350 Intake: IV 300 / 300 50 / 50 50 / 50 Dextrose 5% in Water 50 50 / 50 50 / 50 50 / 50 ml @ 100 mls/hr IV Q6 RE[facility] with Zosyn 3.375 gm Rx#: [id number] Sodium Chloride 0.9% 250 250 / 250 ml @ 250 mls/hr IV Q12H [facility] with Vancomycin 1,000 mg Rx#:[id number] Oral 1260 / 1260 800 / 800 Output: Void Amount 225 / 225 1400 / 1400 400 / 400 Other: Meal Dinner Percent of Meal Consumed 100% Feeding Ability Independent # Bowel Movements 1 Weight 187 lb Medical - DS: Data Labs on day of discharge: Labs from last 24 hours 08/22/16 08/22/16 08/22/16 04:00 04:00 04:00 WBC 11.0 RBC 2.97 L Hgb 9.1 L Hct 27.6 L MCV 92.8 MCH 30.6 MCHC 32.9 RDW 14.6 H Plt Count 510 H MPV 5.7 L Gran % 61.2 Lymph % (Auto) 28.1 Hamlin % (Auto) 6.6 Eos % (Auto) 3.2 Baso % (Auto) 0.9 Gran # 6.7 Lymph # 3.1 Hamlin # 0.7 Eos # 0.4 Baso # 0.1 Sodium 137 Potassium 4.0 Chloride 98 Carbon Dioxide 24 Anion Gap 15.0 BUN 8 Creatinine 0.7 GFR Calculation 100 Glucose 118 H Uric Acid 3.0 Calcium 9.0 Phosphorus 3.5 Magnesium 2.1 Total Bilirubin 0.4 Direct Bilirubin < 0.2 GGT 90 H AST 15 ALT 13 Alkaline Phosphatase 77 Lactate Dehydrogenase 128 Total Protein 6.8 Albumin 3.4 Globulin 3.4 Albumin/Globulin Ratio 1.0 Triglycerides 110 Vancomycin Trough 12.5 Preliminary micro results at discharge 08/19/16 17:41 Anaerobic Culture - Preliminary Foot - Left Wound Culture - Preliminary foot wound cultures here have been negative. Blood cultures are negative. EKG shows sinus rhythm at a rate of 69, with right bundle branch block. hest x-ray done on August 20 shows mild cardiomegaly. No infiltrates. foot x-ray from August 18 shows fifth ray amputation, without evidence of obvious osteomyelitis, but there was diffuse forefoot soft tissue swelling. Medical - DS: A/P - Patient/Caregiver Discharge Instructions Activity: increase activity as tolerated, other (No weight bearing on L foot, until ok'd by Dr. Lino) Diet: Consistent Carbohydrate Additional Instructions: #1.Wound care to be done at HBO treatment times. Wash and clean with normal saline. Apply GCB solution on wound. Cover with adaptic and GCB soaked wet/dry gauze. Then AMD kerlix and kristen bandage change daily. Dressings to be done in clinic after HBOT. #2. IV vancomycin and IV Invanz daily to be coordinated as an outpatient. He will be referred to Dr. Motta of infectious diseases, to manage his antibiotic therapies. #3. Hyperbaric oxygen treatments at [facility] wound care [place] to be scheduled. #4. Follow-up with or another wound care clinic, for recheck of wound, and one week. 35. We will try to arrange role about scooter, to accommodate non-weight- bearing ambulation. HBO to begin 08/23 @ 1300 At [facility] Hyper[facility]ic center. Out patient Antibiotics to Start 08/23 @3:30, Check in at Admissions desk across form Emergency Room @ [facility] [place]. Prescriptions: Ertapenem [INVanz] 1 gm IM Q24H #21 vial Famotidine 10 mg PO BID PRN #30 tablet PRN Reason: Heartburn Vancomycin 1,000 mg IV Q24H #21 vial oxyCODONE HCL [Roxicodone] 5 mg PO Q4HP PRN #30 tablet PRN Reason: Pain Other Amb Orders: [place] Location: Determined By Patient - Follow up Plan Follow up with: Marie Morocho DO [Primary Care Provider] - Kit Motta MD [Physician] - Disposition: Home, Self-Care Prognosis: Good Rehab Potential: Good I certify that the patient requires SNF services: No Overall status at discharge: patient is not back to baseline Medical - DS: Qual - VTE Deep Vein Thrombosis/Pulmonary Embolism Present on Admission: No
--- NOTE | 2016-08-22 12:53 | General Surgery Progress Note ---
Subjective Narrative: Note initiated : 08/22/16 at 12:48 pm Service Date, if different from initiated Date: [] Patient: Jacoby Silver 61 y/o M admitted on 08/19/16 for Wound Debridement/Cellulitis & Abscess of Foot. Chief Complaint: [] After discharge from the hospital today, patient will be started on outpatient hyperbaric oxygen therapy / treatment for amputation of left fifth toe. This outpatient treatment is to be given over a period of 5-6 weeks. Total 30 treatments. Each treatment is hyperbaric oxygen 2.5 marva 90 minutes with air breaks and standard HBO T protocol. Patient can be given 0.5-1 mg of Ativan as necessary if patient is apprehensive. He can be given Afrin nose spray if complaining of nose congestion. He is to eat a full breakfast before going into HBO chamber for treatment. Objective Temp Pulse Resp BP Pulse Ox 97.3 F L 69 18 154/77 98 08/22/16 08:00 08/22/16 08:00 08/22/16 08:00 08/22/16 08:00 08/22/16 08:00 - Additional Data Intake & Output - Last 24 hours: Intake & Output 08/20/16 08/21/16 08/22/16 08/23/16 05:59 05:59 05:59 05:59 Intake Total 1948 / 1948 4530 / 4530 3640 / 3640 50 / 50 Output Total 2275 / 3100 4200 / 4200 2975 / 2975 400 / 400 Balance -327 / -1152 330 / 330 665 / 665 -350 / -350 Weight 182 lb 8 oz 186 lb 187 lb - Labs 08/22/16 04:00 08/22/16 04:00 Diabetes panel 08/22/16 Range/Units 04:00 Sodium 137 (133-145) mmol/L Potassium 4.0 (3.3-5.1) mmol/L Chloride 98 (96-108) mmol/L Carbon Dioxide 24 (22-30) mmol/L BUN 8 (8-23) mg/dl Creatinine 0.7 (0.7-1.2) mg/dl Glucose 118 H (70-105) mg/dL Calcium 9.0 (8.6-10.4) mg/dl AST 15 (0-37) U/l ALT 13 (0-40) U/l Alkaline Phosphatase 77 (39-117) U/L Total Protein 6.8 (5.9-8.4) gm/dL Albumin 3.4 (3.2-5.2) gm/dL Triglycerides 110 (<150) mg/dl Calcium panel 08/22/16 Range/Units 04:00 Calcium 9.0 (8.6-10.4) mg/dl Phosphorus 3.5 (2.7-4.5) mg/dL Albumin 3.4 (3.2-5.2) gm/dL Pituitary panel 08/22/16 Range/Units 04:00 Sodium 137 (133-145) mmol/L Potassium 4.0 (3.3-5.1) mmol/L Chloride 98 (96-108) mmol/L Carbon Dioxide 24 (22-30) mmol/L BUN 8 (8-23) mg/dl Creatinine 0.7 (0.7-1.2) mg/dl Glucose 118 H (70-105) mg/dL Calcium 9.0 (8.6-10.4) mg/dl Adrenal panel 08/22/16 Range/Units 04:00 Sodium 137 (133-145) mmol/L Potassium 4.0 (3.3-5.1) mmol/L Chloride 98 (96-108) mmol/L Carbon Dioxide 24 (22-30) mmol/L BUN 8 (8-23) mg/dl Creatinine 0.7 (0.7-1.2) mg/dl Glucose 118 H (70-105) mg/dL Calcium 9.0 (8.6-10.4) mg/dl Total Bilirubin 0.4 (0.0-1.0) mg/dL AST 15 (0-37) U/l ALT 13 (0-40) U/l Alkaline Phosphatase 77 (39-117) U/L Total Protein 6.8 (5.9-8.4) gm/dL Albumin 3.4 (3.2-5.2) gm/dL Medical - PN: A/P - Time Spent With Patient Total time spent is greater than 50% in coordination of care (as documented) at patient's floor/unit and/or counseling patient: (1) Gangrene associated with diabetes mellitus Status: Acute Current Visit: Yes (2) Amputation of little toe Status: Acute Current Visit: Yes (3) Amputation of toe, traumatic, complicated Status: Acute Current Visit: Yes
--- NOTE | 2016-08-22 16:51 | Surgical Pathology Report ---
HISTOLOGY SPECIMEN MICROSCOPIC DIAGNOSIS SPECIMEN A - SOFT TISSUE, LEFT FOOT WOUND, BIOPSY/DEBRIDEMENT: -- SEVERE ACUTE/CHRONIC INFLAMMATION WITH FAT NECROSIS, INFLAMMATORY DEBRIS AND FIBROSIS. SPECIMEN B - SOFT TISSUE, LEFT FOOT TENDON, BIOPSY/DEBRIDEMENT: -- SEVERE ACUTE/CHRONIC INFLAMMATION WITH HEMORRHAGE, NECROSIS, FIBROSIS, INFLAMMATORY DEBRIS AND PATCHY CALCIFICATIONS. SPECIMEN C - BONE, LEFT FOOT, BIOPSY: -- ACUTE OSTEOMYELITIS. -- PERIOSTEAL ACUTE INFLAMMATION WITH FIBROSIS, NECROSIS AND FOCAL DEGENERATED SKELETAL MUSCLE. -- NO MALIGNANCY IDENTIFIED. (ACP:sln) CLINICAL HISTORY Left foot wound infected. GROSS DESCRIPTION Specimen A: Received in formalin, labeled left foot necrotic wound tissue, are two pink-mahan strips of tissue. They are 1.7 x 0.5 x 0.3 cm and 4.5 x 0.6 x 0.5 cm. Possible margins are inked black. [employer] sections submitted - one cassette. Specimen B: Received in formalin, labeled tendon left foot necrotic tendon, is a yellow-welch tissue fragment. It is 2.8 x 1.0 x 1.4 cm. Cut surfaces are soft, welch. [employer] sections submitted - one cassette. Specimen C: Received in formalin, labeled left foot bone, is a 2.4 x 1.7 x 1.3 cm, portion of mahan-white bone with a minimal amount of attached soft tissue. The external surface is inked black and the specimen is sectioned to reveal mahan-white firm bone. [employer] sections are submitted in one cassette following decalcification. (SCB:pancho) Electronically Signed by: Og Azul M.D.
== END 2016-08-22 14:35 | disposition home or self-care (01) | DRG 564 ==
LOC: ED 14:45 → MEDSUR 14:45 → SUATTDRO 08-19 09:09
PROVIDERS: ADMIT Internal Medicine; ATTEND Internal Medicine